=== PATIENT | female | born 1965 | race Caucasian/White ===

== ENCOUNTER 2020-05-14 12:19 | Outpatient (REF) | payer OTHER, SELFPAY ==
[2020-05-14 14:47] LABS: Calcium 10.4 mg/dL (8.4-10.2); Magnesium 2.4 mg/dL (1.6-2.6); Phosphorus 3.2 mg/dL (2.7-4.5)
[2020-05-14 14:52] LABS: Free T4 (Free Thyroxine) 1.15 ng/dL (0.71-1.85); Thyroid Stimulating Hormone 1.29 uIU/mL (0.32-4.0); Vitamin D 25-OH Total 22.6 ng/mL (>30)
[2020-05-15 10:43] LABS: Triiodothyronine T3 Free 3.1 pg/mL (2.3-4.2)
[2020-05-17 16:22] LABS: Calcium (PTHI) 10.7 mg/dL (8.6-10.4); PTHI 144 pg/mL (14-64)
== END 2020-05-14 12:20 | disposition home or self-care (01) ==
LOC: HO.HMGCLDS 12:19
PROVIDERS: PCP Internal Medicine; Visit Provider Internal Medicine
DX: E21.3 Hyperparathyroidism, unspecified (principal); E03.9 Hypothyroidism, unspecified; E55.9 Vitamin D deficiency, unspecified
CPT/HCPCS: 36415; 82306; 82310; 82330; 83735; 83970; 84100; 84439; 84443; 84481

== ENCOUNTER 2020-11-05 06:18 | Outpatient (REF) | payer OTHER, SELFPAY ==
[2020-11-05 11:29] LABS: MANUAL DIFF FLAG NO
[2020-11-05 11:36] LABS: Basophils Absolute Auto 0.1 X10*3/uL (0.0-0.2); Basophils Percent Auto 0.6 % (0-2); Eosinophils Absolute Auto 0.3 X10*3/uL (0.0-0.4); Eosinophils Percent Auto 3.3 % (0-4); Hematocrit 43.7 % (37-47); Imm Gran Abs Auto 0.02 X10*3/uL (0.00-0.03); Imm Gran Pct Auto 0.3 % (0.0-0.4); Lymphocytes Absolute Auto 2.5 X10*3/uL (1.2-4.9); Lymphocytes Percent Auto 31.3 % (20-40); Mean Corpuscular Hemoglobin 29.1 pg (27.0-33.0); Mean Corpuscular Volume 90.9 fL (80-98); Mean Platelet Volume 10.3 fL (9.4-12.3); Monocytes Absolute Auto 0.4 X10*3/uL (0.1-1.2); Monocytes Percent Auto 5.5 % (2-11); Neutrophils Absolute Auto 4.7 X10*3/uL (2.0-8.3); Platelet Count 293 X10*3/uL (160-400); Red Blood Count 4.81 X10*6/uL (4.20-5.50); Red Cell Distribution Width 12.5 % (11.0-16.0)
[2020-11-05 12:08] LABS: Alanine Aminotransferase 13 U/L (0-31); Albumin Level 4.1 g/dL (3.5-5.0); Alkaline Phosphatase 101 U/L (39-117); Anion Gap 12 (12-20); Aspartate Amino Transferase 12 U/L (5-31); Bilirubin Total 0.5 mg/dL (0.0-1.0); Blood Urea Nitrogen 11 mg/dL (9-16); Calcium 10.5 mg/dL (8.4-10.2); Carbon Dioxide 25 mmol/L (22-29); Chloride 108 mmol/L (96-108); Cholesterol 193 mg/dL; Estimated Glomerular Filt Rate > 60; Glucose Fasting 84 mg/dL (60-99); HDL Cholesterol 50 mg/dL; LDL Cholesterol Calculated 114 mg/dl; Potassium 4.3 mmol/L (3.3-5.1); Sodium 141 mmol/L (135-145); Total Protein 6.7 g/dL (6.5-8.0); Triglycerides 149 mg/dL
[2020-11-05 12:14] LABS: Vitamin D 25-OH Total 25.7 ng/mL (>30)
[2020-11-13 20:12] LABS: Parathyroid Hormone Related Pr 10 pg/mL (14-27)
== END 2020-11-05 06:19 | disposition home or self-care (01) ==
LOC: HO.HMGCLDS 06:18
PROVIDERS: PCP Internal Medicine; Visit Provider Internal Medicine
DX: E03.9 Hypothyroidism, unspecified (principal); E55.9 Vitamin D deficiency, unspecified; E21.3 Hyperparathyroidism, unspecified
CPT/HCPCS: 36415; 80053; 80061; 82306; 83519; 84443; 85025

== ENCOUNTER 2021-01-21 13:12 | Outpatient (REF) | payer OTHER, SELFPAY ==
--- NOTE | ~2021-01-21 | CT_ITS ---
EXAMINATION: CT CHEST SCREENING CLINICAL INFORMATION: Nicotine dependence, cigarettes. COMPARISON: Chest 07/05/2013 TECHNIQUE: Multidetector volumetric CT imaging of the chest is performed without contrast using low dose technique. Additional 2-D coronal and sagittal reformatted images and axial 3-D maximum intensity projection (MIP) images are generated on the CT workstation. This CT examination was performed using dose optimization techniques as appropriate, variously including the following: *Automated exposure control *Adjustment of mA and/or kV according to patient size (this includes techniques or standardized protocols for targeted exams where dose is matched to indication/reason for exam; i.e. extremities or head) *Use of iterative reconstruction technique DLP: 222 mGy-cm FINDINGS: LUNGS: The lungs are expanded and clear of acute process. There is a 2 mm nodule right upper lobe axial image 96/6, 3 mm nodule right upper lobe adjacent to the minor fissure on axial image 209/6, 4 mm nodule along the right minor fissure axial image 227/6, 4 mm nodule subpleural based in the lingula axial image 234/6, 1 mm subpleural based nodule right lower lobe axial image 317/6. No consolidation or ground-glass density seen. MEDIASTINUM: The central trachea and the bronchi are widely patent. Heart size and the great vessels are normal caliber. There are small shotty lymph nodes. No pericardial effusion seen. The left thyroid lobe is normal. The right thyroid lobe is not visualized well or atrophic. PLEURA: There is no pleural effusion. No pleural mass or thickening. AXILLA: There are small shotty bilateral axillary lymph nodes. The largest measuring 4 mm in the left axilla image 19/3. The chest wall appears unremarkable. UPPER ABDOMEN: Visualized liver, spleen, pancreas, and bilateral adrenal glands are unremarkable. OSSEOUS STRUCTURES: There is no lytic or sclerotic process. There is mild ventral spondylosis T4-T5 disc level. CT/CT lung screening IMPRESSION: Bilateral small right pulmonary nodules. 4 mm intrafissural nodule is likely lymph node. ASSESSMENT: Lung-RADS category 2: Benign. RECOMMENDATION: Low-dose annual CT chest.
== END 2021-01-21 13:13 | disposition home or self-care (01) ==
LOC: HO.CT 13:12
PROVIDERS: PCP Internal Medicine; Visit Provider Physician Assistant Medical
DX: Z12.2 Encounter for screening for malignant neoplasm of respiratory organs (principal); F17.210 Nicotine dependence, cigarettes, uncomplicated
CPT/HCPCS: 71271; G0296

== ENCOUNTER 2021-04-01 08:17 | Day surgery (SDC) | payer OTHER, SELFPAY ==
[2021-03-28 13:34] VITALS: BMI 26.3
--- NOTE | 2021-03-31 12:57 | HO.ANESPROP2 ---
Documented by User: Yulissa Henderson NP 03/31/21 12:57 HPI - Anesthesia Eval Consult details Narrative: 56yo F for Colonoscopy PMFSH Active Problems Active Problems: All Active Problems (Updated 01/21/21 @ 13:13 by Jania Lion PA-C) Personal history of nicotine dependence (Acute) Past Medical History Medical History (Updated 01/21/21 @ 13:13 by Jania Lion PA-C) Anxiety Hypercalcemia Hyperparathyroidism Hypothyroidism Personal history of nicotine dependence Tubular adenoma of colon (~2016) Vitamin D insufficiency Surgical History Surgical History (Updated 03/28/21 @ 13:28 by Soco Lawton RN) History of colonoscopy (~04/2016) History of laparoscopic cholecystectomy (~02/2016) History of laser assisted in situ keratomileusis (~2003) Hx of laparoscopy Social History Social History (Updated 01/21/21 @ 13:11 by Jania Lion PA-C) Alcohol intake: current Alcohol intake frequency: does not drink Patient Tobacco Use Status: Current everyday Tobacco user Tobacco use type: Cigarette Cigarette Packs Per Day: 0.5 Cigarettes Per Day: 10.0 Years Smoked: 37 (onset 19, 1/2-3/4ppd x 37yrs, 20PYH) Use of substances other than those prescribed or required for medical reasons: No Advance Directives Information Provided: Yes (informational brochure mailed) Advance Directives on File: No Meds Allergies Allergy/AdvReac Type Severity Reaction Status Date / Time Penicillins Allergy Intermediate Rash Verified 04/01/21 09:02 Home Medications Medication Instructions Recorded Confirmed Last Taken Type ergocalciferol (vitamin D2) 1,250 1 cap PO 2XW 03/28/21 03/28/21 Unknown History mcg (50,000 unit) capsule levothyroxine 112 mcg tablet 1 tab PO DAILY 03/28/21 03/28/21 Unknown History Exam Exam Date and Time: March 31, 2021 1257 Height,Weight and Vital Signs: Height 5 ft 6 in Weight 73.936 kg Assessment and Plan Assessment Anesthesia Assessment: Chart Reviewed Documented by User: Angeline Liang MD 04/01/21 09:32 [facility] Past Medical History Medical History (Updated 01/21/21 @ 13:13 by Jania Lion PA-C) Anxiety Hypercalcemia Hyperparathyroidism Hypothyroidism Personal history of nicotine dependence Tubular adenoma of colon (~2016) Vitamin D insufficiency Functional capacity: wheelchair bound Family History Family history of problems with anesthesia: No Surgical History Surgical History (Updated 03/28/21 @ 13:28 by Soco Lawton RN) History of colonoscopy (~04/2016) History of laparoscopic cholecystectomy (~02/2016) History of laser assisted in situ keratomileusis (~2003) Hx of laparoscopy History of Problems with Anesthesia: No Social History Social History (Updated 01/21/21 @ 13:11 by Jania Lion PA-C) Alcohol intake: current Alcohol intake frequency: does not drink Patient Tobacco Use Status: Current everyday Tobacco user Tobacco use type: Cigarette Cigarette Packs Per Day: 0.5 Cigarettes Per Day: 10.0 Years Smoked: 37 (onset 19, 1/2-3/4ppd x 37yrs, 20PYH) Use of substances other than those prescribed or required for medical reasons: No Advance Directives Information Provided: Yes (informational brochure mailed) Advance Directives on File: No Meds Allergies Allergy/AdvReac Type Severity Reaction Status Date / Time Penicillins Allergy Intermediate Rash Verified 04/01/21 09:02 Home Medications Medication Instructions Recorded Confirmed Last Taken Type ergocalciferol (vitamin D2) 1,250 1 cap PO 2XW 03/28/21 03/28/21 Unknown History mcg (50,000 unit) capsule levothyroxine 112 mcg tablet 1 tab PO DAILY 03/28/21 03/28/21 Unknown History Exam Airway Mallampati Class: II (Capupper left) TM Dist: >3cm Neck ROM: Full Heart: rrr Lungs: cta Assessment and Plan Assessment Anesthesia Assessment: Anesthesia Plan Discussed and Chart Reviewed Final Anesthetic Review Family History of Problems with Anesthesia: No History of Problems with Anesthesia: No NPO: Yes ASA Class: II Final Preanesthetic Review: No Changes in Pt Med Stat, Meds/Allgs Chart Reviewed and Consent Obtained/Reviewed Patient Risk: Intermediate Procedure Risk: Intermediate Anesthetic Plan Anesthetic Plan: MAC: Disposition: Standard PACU
[2021-04-01 09:06] VITALS: BP 123/85; PULSE 72; RESP 16; TEMP 36.9; O2SAT 97
[2021-04-01] MEDS: Lactated Ringers 1,000 ML 100 ML IVCONT (09:22)
[2021-04-01 10:40] VITALS: BP 108/51; PULSE 71; RESP 16; TEMP 36.8; O2SAT 98
--- NOTE | 2021-04-01 10:44 | PM.OP ---
Brief Operative Note Date of Service: 04/01/21 Pre-op diagnosis: Screening Post-op diagnosis: other (Colon polyps) Procedure: Colonoscopy to the cecum and TI with hot snare polypectomies, and bx/removal of polyps Surgeon: Holland Tiwari Anesthesia: MAC Was an Rheumatology Specialist used for this Procedure?: No Estimated blood loss (mL): 2.0 Pathology: other (A. Transverse colon polyps B. Cecal polyp C. Ascending colon polyps D. Distal rectal polyp) Condition: stable Disposition: PACU
[2021-04-01 10:55] VITALS: BP 130/90; PULSE 64; RESP 16; TEMP 36.8; O2SAT 100
--- NOTE | 2021-04-01 11:09 | OP_ITS ---
SURGEON: Holland Tiwari MD INDICATIONS: The patient presents for evaluation of personal history of tubular adenoma of the colon and colorectal cancer screening. Full consent has been obtained from her for this, including risks of bleeding and perforation. PREOPERATIVE DIAGNOSIS: POSTOPERATIVE DIAGNOSIS: PROCEDURE PERFORMED: Colonoscopy to the cecum and terminal ileum with hot snare polypectomies and biopsy and removal of polyps. ESTIMATED BLOOD LOSS: COMPLICATIONS: ANESTHESIA: Monitored anesthesia care. ASSISTANTS: SPECIMENS: PREOPERATIVE DIAGNOSES: Personal history of colon polyps and colorectal cancer screening. POSTOPERATIVE DIAGNOSES: Personal history of colon polyps and colorectal cancer screening, multiple colon polyps, diverticulosis, and internal hemorrhoids. DESCRIPTION OF PROCEDURE: The patient was placed in the left lateral decubitus position. The digital rectal exam revealed no abnormalities. The Olympus video pediatric colonoscope was entered into the rectum and advanced easily to the cecum. Once in the cecum, I did identify normal-appearing cecal pouch with appendiceal orifice and a normal-appearing ileocecal valve, other than a 3 or 4 mm polyp in the cecum, which was biopsied and completely removed with cold biopsy forceps. The terminal ileum was cannulated and appeared normal. The scope was withdrawn back in the colon. The remainder of the cecum appeared normal. The scope was slowly withdrawn assessing all mucosal surfaces carefully. Preparation was excellent. In the ascending colon, were 2 approximately 10 to 12 mm relatively flat polyps, which were each snared and removed with a hot snare and recovered by suction. The polypectomy sites appeared clean, without any sign of residual polyp nor bleeding. In the transverse colon, was an approximately 10 to 12 mm polyp, which was removed with a hot snare polypectomy and recovered by suction. The polypectomy site appeared clean, without any sign of residual polyp nor bleeding. In the same area, was an approximately 3 mm polyp, which was biopsied and completely removed with cold biopsy forceps. In the distal rectum, seen in the retroflexed position, was an approximately 12 mm polyp, which was snared and recovered by withdrawing it on the tip of the scope. The scope was advanced back into the rectum and the polypectomy site appeared clean, without any sign of residual polyp nor bleeding. I did not visualize any other polyps throughout the colon, colitis nor angiodysplasia. There was a mild amount of sigmoid diverticulosis. In the rectum, scope was retroflexed visualizing the distal rectum, which appeared normal other than the above-mentioned polyp. There were small internal hemorrhoids. The scope was withdrawn from the patient. She tolerated the procedure well and was returned to recovery area in stable condition. IMPRESSION: 1. Multiple colon polyps, status post snare polypectomy, and biopsy and removal. 2. Diverticulosis. 3. Internal hemorrhoids. PLAN: The results of the pathology will be checked. I would recommend a repeat colonoscopy in 3 years for further surveillance. She was advised not to use any aspirin and NSAIDs for 1 week. MD CECI Linares/LANCE / [id number]
== END 2021-04-01 11:20 | disposition home or self-care (01) ==
PROVIDERS: PCP Internal Medicine; Visit Provider Internal Medicine
PROC: 0DJD8ZZ Inspection of Lower Intestinal Tract, Via Natural or Artificial Opening Endoscopic (ICD-10-PCS; CPT 45378; principal; 2021-04-01 09:30)
DX: Z12.11 Encounter for screening for malignant neoplasm of colon (principal); Z86.010 Personal history of colon polyps; D12.0 Benign neoplasm of cecum; D12.2 Benign neoplasm of ascending colon; D12.3 Benign neoplasm of transverse colon; D12.8 Benign neoplasm of rectum; K57.30 Diverticulosis of large intestine without perforation or abscess without bleeding; K64.8 Other hemorrhoids; E03.9 Hypothyroidism, unspecified; E55.9 Vitamin D deficiency, unspecified; Z79.899 Other long term (current) drug therapy; Z90.49 Acquired absence of other specified parts of digestive tract; F17.210 Nicotine dependence, cigarettes, uncomplicated
CPT/HCPCS: 45385; 45380; 88305

== ENCOUNTER 2021-11-09 06:19 | Outpatient (REF) | payer OTHER, SELFPAY ==
[2021-11-09 11:23] LABS: Appearance Urine CLEAR; Color Urine YELLOW; Glucose Urine UA NEG (NEG); Leukocyte Esterase Urine NEG (NEG); Nitrite Urine NEG (NEG); Specific Gravity - Urine 1.025 (1.005-1.025); Urine Blood TRACE (NEG); Urine Ketones NEG (NEG); Urine Protein NEG (NEG-TRACE)
[2021-11-09 11:28] LABS: MANUAL DIFF FLAG NO
[2021-11-09 11:35] LABS: Basophils Absolute Auto 0.1 X10*3/uL (0.0-0.2); Basophils Percent Auto 0.9 % (0-2); Eosinophils Absolute Auto 0.2 X10*3/uL (0.0-0.4); Eosinophils Percent Auto 2.7 % (0-4); Hematocrit 43.9 % (37.0-47.0); Hemoglobin 14.6 g/dl (12.0-16.0); Imm Gran Abs Auto 0.04 X10*3/uL (0.00-0.03); Imm Gran Pct Auto 0.5 % (0.0-0.4); Lymphocytes Absolute Auto 2.1 X10*3/uL (1.2-4.9); Lymphocytes Percent Auto 26.8 % (20-40); Mean Corpuscular HGB Conc 33.3 g/dl (31.0-35.0); Mean Corpuscular Hemoglobin 29.7 pg (27.0-33.0); Mean Corpuscular Volume 89.4 fL (80.0-98.0); Mean Platelet Volume 10.3 fL (9.4-12.3); Monocytes Absolute Auto 0.5 X10*3/uL (0.1-1.2); Monocytes Percent Auto 6.7 % (2-11); Neutrophils Absolute Auto 4.9 x10*3/uL (2.0-8.3); Neutrophils Percent Auto 62.4 % (45-73); Platelet Count 288 X10*3/uL (160-400); Red Blood Count 4.91 X10*6/uL (4.20-5.50); Red Cell Distribution Width 12.6 % (11.0-16.0); White Blood Count 7.8 X10*3/uL (4.8-10.8)
[2021-11-09 11:56] LABS: Alanine Aminotransferase 18 U/L (0-31); Albumin Level 4.3 g/dL (3.5-5.0); Alkaline Phosphatase 102 U/L (39-117); Anion Gap 7 (12-20); Aspartate Amino Transferase 13 U/L (5-31); Bilirubin Total 0.5 mg/dL (0.0-1.0); Blood Urea Nitrogen 8 mg/dL (9-16); Calcium 10.4 mg/dL (8.4-10.2); Carbon Dioxide 27 mmol/L (22-29); Chloride 108 mmol/L (96-108); Cholesterol 195 mg/dL; Estimated Glomerular Filt Rate > 60; Glucose Fasting 97 mg/dL (60-99); HDL Cholesterol 49 mg/dL; LDL Cholesterol Calculated 116 mg/dl; Sodium 138 mmol/L (135-145); Triglycerides 152 mg/dL
[2021-11-09 12:18] LABS: Thyroid Stimulating Hormone 5.49 uIU/mL (0.32-4.0); Vitamin D 25-OH Total 38.2 ng/mL (>30)
[2021-11-09 12:28] LABS: Calcium Oxalate Crystals Urine 2+ /LPF
[2021-11-09 12:29] LABS: Bacteria Urine TRACE /LPF; Squamous Epithelial Cell Urine 2+ /LPF
[2021-11-09 12:30] LABS: RBC Urine 0-2 /HPF (0); WBC Urine 0-2 /HPF (0-4)
[2021-11-11 11:17] LABS: Calcium (PTHI) 10.7 mg/dL (8.6-10.4); PTHI 117 pg/mL (16-77)
== END 2021-11-09 06:20 | disposition home or self-care (01) ==
LOC: HO.HMGCLDS 06:19
PROVIDERS: Visit Provider Internal Medicine
DX: Z00.00 Encounter for general adult medical examination without abnormal findings (principal); E03.9 Hypothyroidism, unspecified; E55.9 Vitamin D deficiency, unspecified; F17.200 Nicotine dependence, unspecified, uncomplicated
CPT/HCPCS: 36415; 80053; 80061; 81001; 82306; 83970; 84443; 85025

== ENCOUNTER 2022-06-02 06:25 | Outpatient (REF) | payer OTHER, SELFPAY ==
[2022-06-02 12:26] LABS: Alanine Aminotransferase 22 U/L (0-31); Albumin Level 4.1 g/dL (3.5-5.0); Alkaline Phosphatase 123 U/L (39-117); Anion Gap 11 (12-20); Aspartate Amino Transferase 16 U/L (5-31); Bilirubin Total 0.5 mg/dL (0.0-1.0); Blood Urea Nitrogen 9 mg/dL (9-16); Calcium 10.6 mg/dL (8.4-10.2); Carbon Dioxide 27 mmol/L (22-29); Chloride 109 mmol/L (96-108); Estimated Glomerular Filt Rate > 60; Glucose Fasting 99 mg/dL (60-99); Potassium 4.2 mmol/L (3.3-5.1); Sodium 143 mmol/L (135-145); Total Protein 6.5 g/dL (6.5-8.0)
[2022-06-05 13:15] LABS: Calcium (PTHI) 10.8 mg/dL (8.6-10.4); PTHI 97 pg/mL (16-77)
== END 2022-06-02 06:26 | disposition home or self-care (01) ==
LOC: HO.HMGCLDS 06:25
PROVIDERS: PCP Internal Medicine; Visit Provider Internal Medicine
DX: E03.9 Hypothyroidism, unspecified (principal); D55.9 Anemia due to enzyme disorder, unspecified; E21.3 Hyperparathyroidism, unspecified
CPT/HCPCS: 36415; 80053; 83970; 84443

== ENCOUNTER 2023-02-01 06:01 | Outpatient (REF) | payer OTHER, SELFPAY ==
[2023-02-01 11:36] LABS: MANUAL DIFF FLAG NO
[2023-02-01 11:49] LABS: Basophils Absolute Auto 0.1 X10*3/uL (0.0-0.2); Basophils Percent Auto 0.8 % (0-2); Eosinophils Absolute Auto 0.3 X10*3/uL (0.0-0.4); Eosinophils Percent Auto 4.1 % (0-4); Hematocrit 43.1 % (37.0-47.0); Hemoglobin 13.9 g/dl (12.0-16.0); Imm Gran Abs Auto 0.02 X10*3/uL (0.00-0.03); Imm Gran Pct Auto 0.3 % (0.0-0.4); Lymphocytes Absolute Auto 2.2 X10*3/uL (1.2-4.9); Lymphocytes Percent Auto 29.8 % (20-40); Mean Corpuscular HGB Conc 32.3 g/dl (31.0-35.0); Mean Corpuscular Hemoglobin 28.7 pg (27.0-33.0); Mean Platelet Volume 10.6 fL (9.4-12.3); Monocytes Absolute Auto 0.5 X10*3/uL (0.1-1.2); Monocytes Percent Auto 6.4 % (2-11); Neutrophils Absolute Auto 4.2 x10*3/uL (2.0-8.3); Neutrophils Percent Auto 58.6 % (45-73); Platelet Count 289 X10*3/uL (160-400); Red Blood Count 4.84 X10*6/uL (4.20-5.50); Red Cell Distribution Width 12.6 % (11.0-16.0); White Blood Count 7.2 X10*3/uL (4.8-10.8)
[2023-02-01 12:22] LABS: Alanine Aminotransferase 17 U/L (0-31); Alkaline Phosphatase 112 U/L (39-117); Anion Gap 12 (12-20); Aspartate Amino Transferase 16 U/L (5-31); Bilirubin Total 0.5 mg/dL (0.0-1.0); Blood Urea Nitrogen 7 mg/dL (9-16); Calcium 10.8 mg/dL (8.4-10.2); Carbon Dioxide 24 mmol/L (22-29); Chloride 108 mmol/L (96-108); Cholesterol 180 mg/dL (<200); Estimated Glomerular Filt Rate > 60; Glucose Fasting 88 mg/dL (60-99); HDL Cholesterol 47 mg/dL (>40); LDL Cholesterol Calculated 99 mg/dL (<100); Potassium 3.8 mmol/L (3.3-5.1); Sodium 140 mmol/L (135-145); Total Protein 6.7 g/dL (6.5-8.0); Triglycerides 173 mg/dL (<150)
[2023-02-01 12:27] LABS: Vitamin D 25-OH Total 56.5 ng/mL (>30)
[2023-02-09 17:53] LABS: Parathyroid Hormone Related Pr 12 pg/mL (11-20)
== END 2023-02-01 06:02 | disposition home or self-care (01) ==
LOC: HO.HMGCLDS 06:01
PROVIDERS: PCP Internal Medicine; Visit Provider Internal Medicine
DX: Z00.00 Encounter for general adult medical examination without abnormal findings (principal); E03.9 Hypothyroidism, unspecified; E55.9 Vitamin D deficiency, unspecified; E21.3 Hyperparathyroidism, unspecified; F17.200 Nicotine dependence, unspecified, uncomplicated
CPT/HCPCS: 36415; 80053; 80061; 82306; 83519; 84443; 85025

== ENCOUNTER 2023-03-01 10:37 | Outpatient (AMB) | payer OTHER, SELFPAY ==
--- NOTE | 2023-03-01 10:42 | A.OFFVIS_ITS ---
Intake Vital Signs 3 03/01/23 10:58 Height 5 ft 6 in Weight 165 lb BMI 26.6 BP 122/82 Blood Pressure Location Lt brachial Position Sitting Intake Visit Reasons: mass left upper leg Intake Note: Patient is seen in office for evaluation and treatment of leg upper leg mass. Patient c/o: onset 3 months, has increase in size, painful to the touch, denies discharge, redness or other concerns Manager Clinical Pharmacy Required: No Accompanied by: Self / Same As Patient Allergies Penicillins Allergy (Intermediate, Verified 03/01/23 10:52) Rash Medication List - Last Reconciled 03/01/23 by Senthil Underwood MD ergocalciferol (vitamin D2) 1 cap PO 2XW levothyroxine 1 tab PO DAILY HPI HPI Comments 2 History of Present Illness0 Details 58-year-old female patient presenting fo r evaluation of a mass in the left upper leg. The lesion was initially noted approximately 3 months ago and thought to be an ingrown hair. She reports squeezing the lesion but was unable to drain any fluid. Since this time the lesion has become hard and more elevated. She notes some crusty surface on the outside but denies any bleeding or discharge. She denies a previous history of similar lesions in other parts of her body. She does report pain associated with the lesion. She is requesting excision. [facility] Medical History Hypercalcemia Anxiety Vitamin D insufficiency Hypothyroidism Hyperparathyroidism Tubular adenoma of colon (~2016) Personal history of nicotine dependence Surgical History History of wisdom tooth extraction Hx of laparoscopy History of laser assisted in situ keratomileusis (~2003) History of laparoscopic cholecystectomy (~02/2016) History of colonoscopy (~04/2016) Family History Paternal Grandmother Colon cancer Maternal Grandmother Uterine cancer Social History Alcohol intake: current Alcohol intake frequency: does not drink Patient Tobacco Use Status: Current everyday Tobacco user Tobacco use type: Cigarette Cigarette Packs Per Day: 0.5 Cigarettes Per Day: 10.0 Years Smoked: 37 (onset 19, 1/2-3/4ppd x 37yrs, 20PYH) Review of Systems Const All systems reviewed & are unremarkable except as noted in HPI and below Denies chills, Denies fever(s), Denies headache(s), Denies poor appetite and Denies weakness ENT Denies headache(s) Card Denies chest pain, Denies irregular heart rhythm, Denies palpitations and Denies dyspnea Resp Denies cough, Denies excessive phlegm production and Denies dyspnea GI Denies abdominal pain, Denies bloating, Denies change in bowel habits, Denies constipation, Denies heartburn, Denies diarrhea, Denies nausea and Denies vomiting Denies urinary frequency Musc Denies back pain, Denies muscle weakness and Denies numbness Skin/Breast Denies changing lesions and Denies unusual bruising Neuro Denies headache(s), Denies numbness, Denies paresthesias and Denies weakness Psych Denies anxiety and Denies depression Endo Denies palpitations Franki/Lymph Denies lymphadenopathy Physical Exam Const General: cooperative and no acute distress Nutritional Appearance: well nourished Orientation/consciousness: patient oriented x3 Limitations: no limitations HEENT Head: Yes normocephalic and Yes atraumatic Ears: hearing grossly normal bilaterally Resp Effort & Inspection: normal respiratory effort, no audible wheezes, no cough and no respiratory distress Cardio Jugular venous distension: no JVD GI Inspection: Yes normal to inspection Skin Other: Warm, dry, no rash Neuro General: patient oriented x3 Extrem General: Yes no clubbing, cyanosis or edema Knee images: 2 1. 1.2 cm hard, pearly lesion with a crusted apex, no pigmentation appreciated. No bleeding or ulceration noted. Lesion appears suggestive of a squamous cell carcinoma. Assessment & Plan Assessment & Plan (1) Skin lesion of left leg: Code(s): L98.9 - Disorder of the skin and subcutaneous tissue, unspecified Plan 58-year-old female patient presenting with a 3 month history of a skin lesion of the left leg which on examination measures approximately 1.2 cm in diameter. It has a firm pearly appearance with a crusted apex. Findings are suggestive of a squamous cell carcinoma. I recommended an excision of the entire lesion to achieve negative margins as a minor surgery under local anesthesia. After discussion of the procedure, risks, and alternatives, she consents to excision of the left leg skin lesion. Coding Level of Care Code New Pt Level 4 (59200) Diagnoses Skin lesion of left leg L98.9
[2023-03-01 10:58] VITALS: BP 122/82; BMI 26.6
== END 2023-03-01 11:03 | disposition home or self-care (01) ==
PROVIDERS: PCP Internal Medicine; Visit Provider Surgery
DX: L98.9 Disorder of the skin and subcutaneous tissue, unspecified (principal)
CPT/HCPCS: 99204

== ENCOUNTER → 2023-03-01 10:37 | Outpatient (BNVA) | payer OTHER, SELFPAY | PROVIDERS: PCP Internal Medicine; Visit Provider Surgery ==

== ENCOUNTER 2023-03-13 10:52 | Outpatient (REF) | payer OTHER, SELFPAY ==
[2023-03-13 11:06] VITALS: BP 157/84; PULSE 70; RESP 16; TEMP 36.6; O2SAT 157
[2023-03-13 11:08] VITALS: BMI 26.6
[2023-03-13 11:48] VITALS: BP 137/82; PULSE 72; RESP 16; O2SAT 97
--- NOTE | 2023-03-13 12:02 | P.OP_ITS ---
Operative Note Operative Note Date of Service: 03/13/23 Narrative: Preoperative diagnosis: Dermal lesion left thigh of unknown malignant potential Postoperative diagnosis: Same Procedure: Excision of dermal lesion left thigh of unknown malignant potential Surgeon: Senthil Underwood MD Soil Conservation Aide: None Anesthesia: Local lidocaine 1% with epinephrine Indications for procedure: 58-year-old female patient presenting with a pearly lesion of the left lateral thigh measuring approximately 1 cm in diameter. Operative findings: Lesion was excised with 2 mm margins be on the palpable lesion Specimen: Dermal lesion left lateral thigh Estimated blood loss: Less than 2 mL Complications: None Procedure details: Patient was brought to the minor surgery suite placed in a supine position. The site of surgery was confirmed by the patient in the left lateral thigh. After assuring informed consent the skin was prepped with Betadine and draped in a sterile fashion. Local anesthesia was then infiltrated around the skin lesion. Elliptical incision oriented longitudinally was then created with a 15 blade. Care was taken to assure at least 2 mm margins around the lesion. The incision was carried out through subcutaneous tissue and then completely excised. This was passed off the table and sent to pathology for further examination. Light pressure was held to maintain hemostasis. Dermis was then reapproximated using interrupted 4-0 Polysorb sutures. Skin was closed using interrupted 4-0 nylon sutures. Sterile dressings consisting of 2 x 2 gauze and Tegaderm were then applied. The patient tolerated the procedure well. She was discharged to home in stable condition.
== END 2023-03-13 10:53 | disposition home or self-care (01) ==
LOC: HO.MS 10:52
PROVIDERS: PCP Internal Medicine; Visit Provider Surgery
PROC: (CPT 11602; principal; 2023-03-13 11:20)
DX: C44.729 Squamous cell carcinoma of skin of left lower limb, including hip (principal)
CPT/HCPCS: 11602; 88305

== ENCOUNTER → 2023-03-13 10:52 | Outpatient (BNV) | payer OTHER, SELFPAY | PROVIDERS: PCP Internal Medicine; Visit Provider Surgery | DX: C44.729 Squamous cell carcinoma of skin of left lower limb, including hip (principal) | CPT/HCPCS: 11603 ==

== ENCOUNTER 2023-03-20 09:43 | Outpatient (AMB) | payer OTHER, SELFPAY ==
--- NOTE | 2023-03-20 10:03 | A.OFFVIS_ITS ---
Intake Vital Signs 03/20/23 10:10 Height 5 ft 6 in Weight 165 lb 0.009 oz BMI 26.6 BP 138/83 Blood Pressure Location Rt brachial Position Sitting Pulse 75 Intake Visit Reasons: S/P excision Left thigh lesion Intake Note: Patient is seen in office for post op assessment post excision left thigh lesion. Patient c/o: reports no changes or complaints at this time. Highway Worker Required: No Accompanied by: Self / Same As Patient Allergies Penicillins Allergy (Intermediate, Verified 03/20/23 10:11) Rash Medication List - Last Reconciled 03/20/23 by Senthil Underwood MD ergocalciferol (vitamin D2) 1 cap PO 2XW levothyroxine 1 tab PO DAILY HPI HPI Comments History of Present Illness Details 58-year-old female patient status post e xcision of lesion of the left lateral thigh 1 week ago. Pathology revealed invasive squamous cell carcinoma, well differentiated, completely excised with negative margins. She tolerated the procedure well and reports no pain following the procedure. She returns today for suture removal and wound check. [facility] Medical History Hypercalcemia Anxiety Vitamin D insufficiency Hypothyroidism Hyperparathyroidism Tubular adenoma of colon (~2016) Personal history of nicotine dependence Surgical History History of local excision of skin lesion (03/13/23) History of wisdom tooth extraction Hx of laparoscopy History of laser assisted in situ keratomileusis (~2003) History of laparoscopic cholecystectomy (~02/2016) History of colonoscopy (~04/2016) Family History Paternal Grandmother Colon cancer Maternal Grandmother Uterine cancer Alcohol intake: current Alcohol intake frequency: does not drink Patient Tobacco Use Status: Current everyday Tobacco user Tobacco use type: Cigarette Cigarette Packs Per Day: 0.5 Cigarettes Per Day: 10.0 Years Smoked: 37 (onset 19, 1/2-3/4ppd x 37yrs, 20PYH) Physical Exam Vital Signs: Last Vital Signs Pulse 75 03/20/23 10:10 BP 138/83 03/20/23 10:10 BMI result Body Mass Index 26.6 Const General: comfortable and no acute distress Nutritional Appearance: well nourished Orientation/consciousness: patient oriented x3 Limitations: no limitations Resp Effort & Inspection: normal respiratory effort Neuro General: patient oriented x3 Extrem Other: Incision in the left lateral thigh is clean, dry, and intact. Sutures removed and Steri-Strips applied. Wounds were found to be well healed. Assessment & Plan Assessment & Plan (1) Cancer of skin of left leg: Comment: Invasive squamous cell carcinoma, excised 03/13/2023 Code(s): C44.709 - Unspecified malignant neoplasm of skin of left lower limb, including hip Plan 58-year-old female patient status post excision of a squamous cell carcinoma of the left lateral thigh. She tolerated the procedure well the wounds are well healed. No further surgical intervention is required at this time. She should continue with routine skin checks follow-up as needed. Coding Level of Care Code Global (27632) Diagnoses Cancer of skin of left leg C44.709
[2023-03-20 10:10] VITALS: BP 138/83; PULSE 75; BMI 26.6
== END 2023-03-20 10:17 | disposition home or self-care (01) ==
PROVIDERS: PCP Internal Medicine; Visit Provider Surgery
DX: C44.709 Unspecified malignant neoplasm of skin of left lower limb, including hip (principal)
CPT/HCPCS: 99024

== ENCOUNTER → 2023-03-20 09:43 | Outpatient (BNVA) | payer OTHER, SELFPAY | PROVIDERS: PCP Internal Medicine; Visit Provider Surgery ==

== ENCOUNTER 2023-04-10 10:12 | Outpatient (REF) | payer OTHER, SELFPAY | END 2023-04-10 10:13 | disposition home or self-care (01) | LOC: HO.CT 10:12 | PROVIDERS: Visit Provider Physician Assistant Medical | DX: Z12.2 Encounter for screening for malignant neoplasm of respiratory organs (principal); F17.210 Nicotine dependence, cigarettes, uncomplicated | CPT/HCPCS: 71271 ==

== ENCOUNTER 2024-02-12 06:34 | Outpatient (REF) | payer OTHER, SELFPAY ==
[2024-02-12 10:11] LABS: MANUAL DIFF FLAG NO
[2024-02-12 10:17] LABS: Basophils Absolute Auto 0.1 X10*3/uL (0.0-0.2); Basophils Percent Auto 0.7 % (0-2); Eosinophils Absolute Auto 0.3 X10*3/uL (0.0-0.4); Eosinophils Percent Auto 3.1 % (0-4); Hematocrit 42.7 % (37.0-47.0); Hemoglobin 14.2 g/dl (12.0-16.0); Imm Gran Abs Auto 0.03 X10*3/uL (0.00-0.03); Imm Gran Pct Auto 0.4 % (0.0-0.4); Lymphocytes Absolute Auto 2.1 X10*3/uL (1.2-4.9); Mean Corpuscular HGB Conc 33.3 g/dl (31.0-35.0); Mean Corpuscular Hemoglobin 29.7 pg (27.0-33.0); Mean Corpuscular Volume 89.3 fL (80.0-98.0); Mean Platelet Volume 10.2 fL (9.4-12.3); Monocytes Absolute Auto 0.5 X10*3/uL (0.1-1.2); Neutrophils Absolute Auto 5.5 x10*3/uL (2.0-8.3); Neutrophils Percent Auto 64.8 % (45-73); Platelet Count 284 X10*3/uL (160-400); Red Blood Count 4.78 X10*6/uL (4.20-5.50); Red Cell Distribution Width 12.6 % (11.0-16.0); White Blood Count 8.4 X10*3/uL (4.8-10.8)
[2024-02-12 10:53] LABS: Alanine Aminotransferase 17 U/L (0-31); Alkaline Phosphatase 93 U/L (39-117); Anion Gap 9 (12-20); Aspartate Amino Transferase 18 U/L (5-31); Bilirubin Total 0.4 mg/dL (0.0-1.0); Blood Urea Nitrogen 9 mg/dL (9-16); Calcium 10.8 mg/dL (8.4-10.2); Carbon Dioxide 27 mmol/L (22-29); Chloride 110 mmol/L (96-108); Cholesterol 206 mg/dL (<200); Estimated Glomerular Filt Rate > 60; Glucose Fasting 95 mg/dL (60-99); HDL Cholesterol 49 mg/dL (>40); LDL Cholesterol Calculated 138 mg/dL (<100); Potassium 3.7 mmol/L (3.3-5.1); Sodium 142 mmol/L (135-145); Total Protein 6.5 g/dL (6.5-8.0); Triglycerides 99 mg/dL (<150)
[2024-02-12 11:11] LABS: Thyroid Stimulating Hormone 6.88 uIU/mL (0.32-4.0); Vitamin D 25-OH Total 62.5 ng/mL (>30)
[2024-02-12 11:20] LABS: Parathyroid Hormone Intact 174.9 pg/mL (8.7-77.1)
== END 2024-02-12 06:35 | disposition home or self-care (01) ==
LOC: HO.HMGCLDS 06:34
PROVIDERS: PCP Internal Medicine; Visit Provider Internal Medicine
DX: Z00.00 Encounter for general adult medical examination without abnormal findings (principal); E03.9 Hypothyroidism, unspecified; E55.9 Vitamin D deficiency, unspecified; E21.3 Hyperparathyroidism, unspecified
CPT/HCPCS: 36415; 80053; 80061; 82306; 83970; 84443; 85025

== ENCOUNTER 2024-04-28 09:32 | Outpatient (REF) | payer OTHER, SELFPAY ==
--- NOTE | ~2024-04-28 | CT_ITS ---
CLINICAL HISTORY: F17.210 - Nicotine dependence, cigarettes, uncomplicated CT lung cancer screening (LDCT) Comparison: CT/FL - CT LUNG SCREENING - 01/21/21 13:36 EDT Technique: Axial CT images of the chest using low-dose technique. Referring provider counseled the patient on shared decision-making for LDCT screening. Additional counseling was provided on smoking cessation. Effective radiation dose total: DLP 37 mGycm, CTDIvol 1.2 mGy. Findings: Lung: Few scattered punctate pulmonary micro nodules bilaterally, measuring less than 6 mm and considered benign. For instance, the largest in the posterior aspect of the left upper lobe measuring 5 mm (series 6, image 223). No infectious consolidation. No pleural effusion or pneumothorax. Coronary artery calcifications: None Limited upper abdomen: Unremarkable Other: Mild atherosclerotic calcifications of the aorta. Impression: LungRADS Category 2: Benign appearance or behavior, continue annual screening. Category 1: Normal; continue annual screening Category 2: Benign appearance or behavior, continue annual screening Category 3: Probably benign, [address] recommended Category 4A: Suspicious, [address] recommended; may consider PET/CT Category 4B: Suspicious, Additional diagnostics and/or tissue sampling recommended Category 4X: Suspicious, Additional diagnostics and/or tissue sampling recommended Category 0: Recalls (incomplete screen due to Incomplete coverage, Noise, Respiratory motion, Expiration, Obscured by acute abnormality) This document has been electronically signed by: Cynthia Boykin MD on 04/28/2024 11:53:26
--- OUTSIDE RECORDS SUMMARY | 2024-04-28 10:00 | XMS_ITS | Continuity of Care Document ---
Author Organization [facility] [address] [facility] [address] [place] [address] Phone [phone] Care Team Providers Care Deaf And Hard Of Hearing Teacher Name Role Phone Holland Raymond M.D. Care Team Information Recei sandy [phone] Social History Type Date Description Comments Sex Unknown Medical Devices Description No Information Available Encounters Description No Information Available Assessments Description No Information Available Plan of Treatment Future Appointment(s):* 06/12/2024 9:30 am - Reyes Guerrier M.D. at Main Office Functional Status Description No Information Available Mental Status Description No Information Available Referrals Description No Information Available
== END 2024-04-28 09:33 | disposition home or self-care (01) ==
LOC: HO.CT 09:32
PROVIDERS: PCP Internal Medicine; Visit Provider Physician Assistant Medical
DX: Z12.2 Encounter for screening for malignant neoplasm of respiratory organs (principal); F17.210 Nicotine dependence, cigarettes, uncomplicated
CPT/HCPCS: 71271

== ENCOUNTER → 2024-04-28 09:34 | Outpatient (BNV) | payer OTHER, SELFPAY | PROVIDERS: PCP Internal Medicine; Visit Provider Radiology Diagnostic Radiology | DX: F17.210 Nicotine dependence, cigarettes, uncomplicated (principal) | CPT/HCPCS: 71271 ==

== ENCOUNTER 2024-06-23 08:53 | Outpatient (AMB) | payer OTHER, SELFPAY ==
--- NOTE | 2024-06-23 08:56 | MHC.PC.OV ---
Vital Signs 06/23/24 09:01 Height 5 ft 5 in Weight 167 lb BMI 27.8 BP 126/80 Blood Pressure Location Rt brachial Pulse 69 Pulse Source Pulse Oximeter Temp 97.9 F Pulse Oximetry (%) 100 Intake Visit Reasons: follow up Intake Note: no other issues Allergies Penicillins Allergy (Intermediate, Verified 06/23/24 09:13) Rash Medication List - Last Reconciled 06/23/24 by Genaro Castro MD levothyroxine 112 mcg PO DAILY lorazepam 1 mg PO BID PRN PFSH Medical History Cancer of skin of left leg Nicotine dependence, cigarettes, uncomplicated Hypercalcemia Anxiety Vitamin D insufficiency Hypothyroidism Hyperparathyroidism Tubular adenoma of colon (~2016) Surgical History History of squamous cell carcinoma excision History of wisdom tooth extraction Hx of laparoscopy History of laser assisted in situ keratomileusis (~2003) History of laparoscopic cholecystectomy (~02/2016) History of colonoscopy (~04/2016) Family History Paternal Grandmother Colon cancer Maternal Grandmother Uterine cancer Social History Alcohol intake: current Alcohol intake frequency: does not drink Patient Tobacco Use Status: Current everyday Tobacco user Tobacco use type: Cigarette Cigarette Packs Per Day: 0.5 Cigarettes Per Day: 10.0 Years Smoked: 37 (onset 19, 1/2-3/4ppd x 38yrs, 20PYH) Packs Per Year: 0 Packs per year/per ci.00 Physical exam (Primary Care) Vital Signs: Last Vital Signs Temp 97.9 F 06/23/24 09:01 Pulse 69 06/23/24 09:01 BP 126/80 06/23/24 09:01 Pulse Ox 100 06/23/24 09:01 BMI result Body Mass Index 27.8 Tobacco/Smoking Status: Tobacco use Status Patient Tobacco Use Status Current everyday Tobacco 06/23/24 08:59 Tobacco use type Cigarette 06/23/24 08:59 Coding Level of Care Code New Pt Level 4 (68473) Complex EM visit Add On G2211 Diagnoses Anxiety F41.9 Hyperparathyroidism E21.3 Hypothyroidism E03.9 Assessment & Plan Assessment & Plan (1) Anxiety: Code(s): F41.9 - Anxiety disorder, unspecified Category: Medical Plan: Intermittent use of Lorazepam. Currently not using it at all. (2) Hyperparathyroidism: Code(s): E21.3 - Hyperparathyroidism, unspecified Category: Medical Plan: Active work up continuing at [facility]. (3) Hypothyroidism: Code(s): E03.9 - Hypothyroidism, unspecified Category: Medical Plan: TSH in range. Continue synthroid at same dosage. Plan History of Present Illness The patient is a 59-year-old female presenting for a routine wellness visit alongside follow-up care for hypercalcemia and hypothyroidism. Hypercalcemia was initially identified by Dr. Raymond, necessitating a referral to an warble saw operator. Appropriate steps have been taken to investigate the underlying cause, including planned blood tests and a recommended bone density assessment, although recent records were not readily available for comparison. The patient?s vitamin D supplementation has been temporarily ceased to aid in managing hypercalcemia. Concurrent with this, her hypothyroidism remains under control with her ongoing levothyroxine therapy. 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 - Housing: Resides with her ; no children. - Travel: Enjoys travel; - Functional status: Active lifestyle, maintains regular health screenings. - Family Status: , no children. Review of Systems - Eye: Reports good vision with use of reading glasses; no night driving issues like halos. - Sleep: Occasionally experiences difficulties sleeping through the night. - Genitourinary: Denies urinary leakage or related issues. - Gastrointestinal: Bowel habits reported as regular. Physical Exam General: Cooperative and healthy appearing Nutritional Appearance: Well nourished Orientation/consciousness: Patient oriented x3 Limitations: No limitations Head: Normal to inspection General: Appearance normal, both eyes and all related structures Neck: Normal visual inspection Chest: Normal palpation of entire chest wall Respiratory: Normal respiratory effort Neurology: Patient oriented x3 Results - Labs: Pending lab work to assess hypercalcemia. - Tests and Diagnostics: Recommendation for bone density test noted. Plan The patient's ongoing management for hypercalcemia involves further diagnostic evaluation as recommended by the warble saw operator, with a focus on blood work scheduled to follow today?s visit. Her hypothyroidism is well-managed with levothyroxine, and her treatment plan will continue as it does not require modification at this time. We are temporarily withholding vitamin D pending further assessment results. Future evaluations of bone health are indicated with a bone density test. A six-month follow-up appointment is planned to reassess and update management strategies as necessary. Patient was informed and verbally consented to the use of an ambient scribe for clinic note documentation during this visit. Discussion Notes The patient and I discussed the current status and future plans for managing her hypercalcemia and hypothyroidism. I emphasized the importance of completing the pending lab work and the rationale for pausing vitamin D. The recommendation for a bone density test aligns with her current diagnostic work-up. We reviewed her medication regimen, and she acknowledged understanding of the plan to continue levothyroxine. We agreed on a six-month follow-up with the intention of adjusting treatment strategies based on findings and remained proactive for any emergent matters. Patient Instructions - Complete scheduled blood work at the [facility] as soon as possible. - Coordinate with diagnostic centers to verify and complete a bone density scan. - Continue taking levothyroxine as directed. - Suspend vitamin D supplementation until advised otherwise. - Follow up in six months or earlier if any issues arise. - Report any significant changes in symptoms promptly. Orders: Orders Lipid Panel Today E03.9 - Hypothyroidism, unspecified, E21.3 - Hyperparathyroidism, unspecified, F41.9 - Anxiety disorder, unspecified Liver Panel Today E03.9 - Hypothyroidism, unspecified, E21.3 - Hyperparathyroidism, unspecified, F41.9 - Anxiety disorder, unspecified Thyroid Stimulating Hormone Today E03.9 - Hypothyroidism, unspecified, E21.3 - Hyperparathyroidism, unspecified, F41.9 - Anxiety disorder, unspecified UA and rflx microscopic Today E03.9 - Hypothyroidism, unspecified, E21.3 - Hyperparathyroidism, unspecified, F41.9 - Anxiety disorder, unspecified Basic Metabolic Panel Today E03.9 - Hypothyroidism, unspecified, E21.3 - Hyperparathyroidism, unspecified, F41.9 - Anxiety disorder, unspecified Complete Blood Count no Diff Today E03.9 - Hypothyroidism, unspecified, E21.3 - Hyperparathyroidism, unspecified, F41.9 - Anxiety disorder, unspecified
[2024-06-23 09:01] VITALS: BP 126/80; PULSE 69; TEMP 36.6; O2SAT 100; BMI 27.8
--- OUTSIDE RECORDS SUMMARY | 2024-06-23 09:27 | XMS_ITS | Continuity of Care Document ---
Author Organization [facility] [address] [place] [address] Phone [phone] Care Team Providers Care District Director Name Role Phone Holland Raymond M.D. Care Team Information Recei sandy [phone] Social History Type Date Description Comments Sex Unknown Lives With Spouse ETOH Use Denies alcohol use Tobacco Use Start: Unknown Patient is a current smoke r, smokes every day 1/2 pack qd Allergies and adverse reactions Active Allergies Criticality Reaction Severity Comments Date Penicillin Unable to assess criticality Hives 06/12/2024 Medications Active Medications SIG Qnty Indications Ordering Provider Date Levothyroxine [id number] Tablets 1 tab by mouth every morning 90tabs Genaro Castro MD Vitamin D (Ergocalciferol)1.25mg (96456 Ut) Capsules Sea Raymond M.D. Vital Signs Date Vital Result Comment 06/12/2024 9:49am BP Systolic 120 mmHg BP Diastolic 80 mmHg Heart Rate 72 /min Height 66 inches 5'6 Weight 168.25 lb BMI (Body Mass Index) 27.2 kg/m2 Medical Devices Description No Information Available Encounters Type Date Location Provider Dx Diagnosis Office Visit 06/12/2024 9:30a Main Office Reyes Guerrier M.D. E21.0 Primary hyperparathyroidism Assessments Date Code Description Provider 06/12/2024 E21.0 Primary hyperparathyroidism Reyes Guerrier M.D. Plan of Treatment Future Appointment(s):* 11/12/2024 10:00 am - Reyes Guerrier M.D. at Main Office 06/12/2024 - Reyes Guerrier M.D.* E21.0 Primary hyperparathyroidism* New Labs:* Calcium, Ordered: 06/12/24 * Vitamin D, 25-Hydroxy, Ordered: 06/12/24 * Albumin, Ordered: 06/12/24 * Phosphorus, Ordered: 06/12/24 * PTH, Intact, Ordered: 06/12/24 * Creatinine, 24-Hour Urine, Ordered: 06/12/24 Functional Status Description No Information Available Mental Status Description No Information Available Referrals Description No Information Available
--- OUTSIDE RECORDS SUMMARY | 2024-06-23 09:27 | XMS_ITS | Patient Health Record ---
Author Organization [facility] Address [address] [place] [address] Care Team Providers Care Human Resources Professional Name Role Phone LEATHA, BAKARI Primary Care Provider Holland Sky [phone] ALLERGIES Allergen (clinical drug ingredient) Drug/Non Drug Allergy documented on EMR Reaction Allergy Type Onset Date Status Penicillin rash Drug Allergy Active REASON FOR REFERRAL No Information MEDICATIONS Medication SIG (Take, Route, Frequency, Duration) Notes Start Date End Date Status Levothyroxine Sodium 112 MCG 1 tablet Or ally 6 days a week Active Vitamin D2 1.25 mg 1 tablet Orally Once a day Active IMMUNIZATIONS Vaccine Route Administration Date Status Comme nts Influenza Unknown 01/22/2020 Administered SOCIAL HISTORY Sex Assigned At : Social History Observation Description Sex Assigned At Unknown Alcohol Screen Question Answer Notes Did you have a drink containing alcohol in the p ast year? No Points 0 Interpretation Negative PROBLEMS Problem Type ICD Code Onset Dates Problem Status W/U Status Risk SNOMED Code Notes Problem Encounter for screening for malignant neoplasm of colon (Z12.11) Active confirmed 604779608 Problem History of adenomatous polyp of colon (Z86.010) Active confirmed 915434720 Problem Calculus of gallbladder without cholecystitis without obstruction (K80.20) Active confirmed 842630754 Problem Encounter for screening for malignant neoplasm of rectum (Z12.12) Active confirmed Screening fo r malignant neoplasm of rectum (282254195) Problem Preprocedural examination (Z01.818) Active confirmed 81835427 Problem Diverticulosis of colon (K57.30) Active confirmed Diverticulosi s of colon (920445951) Problem Tubulovillous adenoma of colon (D12.6) Active confirmed 828040205 Problem Personal history of adenomatous and serrated colon polyps (Z86.0101) Active confirmed VITAL SIGNS Blood pressure diastolic 00 mm Hg 05/13/2024 Height 66 in 05/13/2024 Blood pressure systolic 00 mm Hg 05/13/2024 Weight 165 lbs 05/13/2024 BMI 26.63 kg/m2 05/13/2024 Encounters Encounter Location Date Provider Diagnosis [facility] [address] [place] [address] 05/13/2024 Holland Tiwari Encounter for screen ing for malignant neoplasm of colon Z12.11 ; Preprocedural examination Z01.818 and History of adenomatous polyp of colon Z86.010 ASSESSMENTS Encounter Date Diagnosis Assessment Notes Treatment Notes Treatment Clinical Notes 05/13/2024 Encounter for screening for malignant neoplasm of colon (ICD-10 - Z12.11) 05/13/2024 Preprocedural examination (ICD-10 - Z01.818) 05/13/2024 History of adenomatous polyp of colon (ICD-10 - Z86.010) PLAN OF TREATMENT Future Test Test Name Order Date COLONOSCOPY 01/04/2016 COLONOSCOPY 02/08/2021 COLONOSCOPY 05/13/2024 Next Appt Details Provider Name:Holland Tiwari , 08/29/2024 07:30:00 AM, [address] [place] [address] , [place], [place], [phone], Insurance Providers Payer Name Payer Address Payer Phone Subscriber Number Group Number Insured Name Patient Relationship to Insured Coverage Start Date Coverage End Date [facility] [address] [place] [address] [id number] JOSE MCKEON Self - patient is the insured MEDICAL (GENERAL) HISTORY Medical History History ICD Code Denies [place],DM,CVA,Lung disease,renal dise ase Diagnosed with gallstones 11/2015 at [facility] Hypothyroidism Screening colonoscopy in Apr with multiple polyps removed, including a > 1cm tubulovillous adenoma and > 1cm tubular adenoma Screening colonoscopy in Mar revealed several polyps that were removed, including another tubulovillous adenoma. Surgical History Surgery Date(Month/Year) Laparoscopy age 26 Lasik surgery OU 2003 Cholecystectomy-
--- OUTSIDE RECORDS SUMMARY | 2024-06-23 09:28 | XMS_ITS ---
Author Organization [facility] Address [address] [place] [address] Care Team Providers Care Horse Racing Analyst Name Role Phone BAKARI ZHANG Primary Care Provider Holland Sky [phone] ALLERGIES Allergen (clinical drug ingredient) Drug/Non Drug Allergy documented on EMR Reaction Allergy Type Onset Date Status Penicillin rash Drug Allergy Active REASON FOR VISIT Patient presents today for a COLON SCREENING MEDICATIONS Medication SIG (Take, Route, Frequency, Duration) Notes Start Date End Date Status Levothyroxine Sodium 112 MCG 1 tablet Or ally 6 days a week Active Vitamin D2 1.25 mg 1 tablet Orally Once a day Active SOCIAL HISTORY Sex Assigned At : Social History Observation Description Sex Assigned At Unknown Alcohol Screen Question Answer Notes Did you have a drink containing alcohol in the p ast year? No Points 0 Interpretation Negative PROBLEMS Problem Type ICD Code Onset Dates Problem Status W/U Status Risk SNOMED Code Notes Problem Personal history of adenomatous and serrated colon polyps (Z86.0101) Active confirmed VITAL SIGNS Blood pressure systolic 00 mm Hg 05/13/19 25 Blood pressure diastolic 00 mm Hg 025 Height 66 in 05/13/2024 Weight 165 lbs 05/13/2024 BMI 26.63 kg/m2 05/13/2024 Encounters Encounter Location Date Provider Diagnosis [facility] [address] [place] [phone] 05/13/2024 Holland Tiwari Encounter for screen ing [...] Future Test Test Name Order Date COLONOSCOPY 05/13/2024 Next Appt Details Follow Up: prn, Reason: Provider Name:Holland Tiwari , 08/29/2024 07:30:00 AM, [address] [place] [address], [phone], Progress Notes * Examination Category Sub-Category Detail Notes General Examination GENERAL APPEARANCE: pleasant , well nourished, well developed, in no acute distress HEAD: EYES: sclera non-icteric EARS: NOSE: THROAT: NECK/THYROID: no cervical lymphade nopathy, neck supple HEART: S1, S2 normal CHEST: LUNGS: clear to auscultatio n bilaterally ABDOMEN: normal bowel sounds, no guarding or rigidity, no guarding or rigidity, no masses palpable, soft, nontender, nondistended NEUROLOGIC: alert and oriented SKIN: nonjaundiced, no spi tha angiomata EXTREMITIES: no edema PERIPHERAL PULSES: BACK: BREASTS: MUSCULOSKELETAL: MALE GENITOURINARY: LYMPH NODES: RECTAL EXAM: FEMALE GENITOURINARY: ORAL CAVITY: mucosa moist
== END 2024-06-23 09:24 | disposition home or self-care (01) ==
LOC: HO.HMCSH 08:53
PROVIDERS: PCP Internal Medicine; Visit Provider Internal Medicine
DX: F41.9 Anxiety disorder, unspecified (principal); E21.3 Hyperparathyroidism, unspecified; E03.9 Hypothyroidism, unspecified

== ENCOUNTER 2024-07-17 06:07 | Outpatient (REF) | payer OTHER, SELFPAY ==
[2024-07-17 10:07] LABS: Hematocrit 44.5 % (37.0-47.0); Hemoglobin 14.6 g/dl (12.0-16.0); Mean Corpuscular HGB Conc 32.8 g/dl (31.0-35.0); Mean Corpuscular Volume 88.3 fL (80.0-98.0); Mean Platelet Volume 10.1 fL (9.4-12.3); Platelet Count 302 X10*3/uL (160-400); Red Blood Count 5.04 X10*6/uL (4.20-5.50); Red Cell Distribution Width 12.6 % (11.0-16.0); White Blood Count 7.9 X10*3/uL (4.8-10.8)
[2024-07-17 10:25] LABS: Appearance Urine Cloudy; Color Urine Yellow; Glucose Urine UA Negative (Negative); Leukocyte Esterase Urine Negative (Negative); Nitrite Urine Negative (Negative); PH 5.5 (5.0-9.0); Specific Gravity - Urine 1.015 (1.005-1.025); Urine Blood Negative (Negative); Urine Ketones Negative (Negative); Urine Protein Negative (Neg-Trace)
[2024-07-17 10:58] LABS: Alanine Aminotransferase 22 U/L (0-31); Alkaline Phosphatase 107 U/L (39-117); Anion Gap 9 (12-20); Aspartate Amino Transferase 22 U/L (5-31); Bilirubin Direct 0.1 mg/dL (0.0-0.5); Bilirubin Total 0.4 mg/dL (0.0-1.0); Blood Urea Nitrogen 7 mg/dL (9-16); Calcium 10.3 mg/dL (8.4-10.2); Carbon Dioxide 27 mmol/L (22-29); Chloride 111 mmol/L (96-108); Cholesterol 184 mg/dL (<200); Estimated Glomerular Filt Rate > 60; Glucose Random 89 mg/dL (60-115); HDL Cholesterol 46 mg/dL (>40); LDL Cholesterol Calculated 99 mg/dL (<100); Potassium 3.8 mmol/L (3.3-5.1); Sodium 143 mmol/L (135-145); Thyroid Stimulating Hormone 4.06 uIU/mL (0.32-4.0); Total Protein 6.5 g/dL (6.5-8.0); Triglycerides 196 mg/dL (<150)
== END 2024-07-17 06:08 | disposition home or self-care (01) ==
LOC: HO.HMGCLDS 06:07
PROVIDERS: PCP Internal Medicine; Visit Provider Internal Medicine
DX: F41.9 Anxiety disorder, unspecified (principal); E21.3 Hyperparathyroidism, unspecified; E03.9 Hypothyroidism, unspecified
CPT/HCPCS: 36415; 80048; 80061; 80076; 81003; 84443; 85027

== ENCOUNTER 2024-08-29 06:14 | Day surgery (SDC) | payer OTHER, SELFPAY ==
--- OUTSIDE RECORDS SUMMARY | 2024-07-31 08:04 | XMS_ITS | Continuity of Care Document ---
Author Organization [facility] [address] [place] [address] Phone [phone] Care Team Providers Care Solar Water Heater Installer Name Role Phone Holland Raymond M.D. Care Team Information Recei sandy [phone] Problems Active Problems Provider Date Hyperparathyroidism Reyes Guerrier M.D. Onse t: 07/03/2024 Social History Type Date Description Comments Sex Unknown Lives With Spouse ETOH Use Denies alcohol use Tobacco Use Start: Unknown Patient is a current smoke r, smokes every day 1/2 pack qd Allergies and adverse reactions Active Allergies Criticality Reaction Severity Comments Date Penicillin Unable to assess criticality Hives 06/12/2024 Medications Active Medications SIG Qnty Indications Ordering Provider Date Levothyroxine [id number] Tablets 1 tab by mouth every morning 90tabs Genaro Castro MD Vitamin D (Ergocalciferol)1.25mg (47371 Ut) Capsules Sea Raymond M.D. Vital Signs Date Vital Result Comment 06/12/2024 9:49am BP Systolic 120 mmHg BP Diastolic 80 mmHg Heart Rate 72 /min Height 66 inches 5'6 Weight 168.25 lb BMI (Body Mass Index) 27.2 kg/m2 Results Test Acquired Date Facility Test Result H/L [facility] Creatinine, 24-Hour Urine 06/27/2024 [facility] Creatinine, Urine 79.8 mg/dL Not Estab. Creatinine, Ur 24hr 1 mg/24hr Low 800-1800 Calcium 06/23/2024 [facility] Calcium 11.0 mg/dL High 8.7-10.2 1 Vitamin D, 25-Hydroxy 06/23/2024 [facility] Vitamin D, 25-Hydroxy 58.9 ng/mL 30.0-100.0 2 Albumin 06/23/2024 [facility] Albumin 4.8 g/dL 3.8-4.9 Phosphorus 06/23/2024 [facility] Phosphorus 2.4 mg/dL Low 3.0-4.3 PTH, Intact 06/23/2024 [facility] PTH, Intact 74 pg/mL High 15-65 1 Verified by repeat analysis 2 Vitamin D deficiency has been defined by the [place] of [employer] and an Endocrine Society practice guideline as a level of serum 25-OH vitamin D less than 20 ng/mL (1,2). The Endocrine Society went on to further define vitamin D insufficiency as a level between 21 and 29 ng/mL (2). 1. IOM ([place] of [employer]). 2010. Dietary reference intakes for calcium and D. [place]: The National Academies Press. 2. Ayesha MF, Ferny NC, Ilya DIAZ, et al. Evaluation, treatment, and prevention of vitamin D deficiency: an Endocrine Society clinical practice guideline. JCEM. 2011 Oct; 96(7):1911-30. Medical Devices Description No Information Available Encounters Type Date Location Provider Dx Diagnosis Office Visit 06/12/2024 9:30a Main Office Reyes Guerrier M.D. E21.0 Primary hyperparathyroidism Assessments Date Code Description Provider 06/12/2024 E21.0 Primary hyperparathyroidism Reyes Guerrier M.D. Plan of Treatment Future Appointment(s):* 11/12/2024 10:00 am - Reyes Guerrier M.D. at Main Office 06/12/2024 - Reyes Guerrier M.D.* E21.0 Primary hyperparathyroidism Functional Status Description No Information Available Mental Status Description No Information Available Referrals Description No Information Available
--- NOTE | 2024-08-27 13:04 | HO.ANESPROP2 ---
HPI - Anesthesia Eval Consult details Narrative: 59yo F for Colonoscopy PMFSH Active Problems Active Problems: All Active Problems Hypothyroidism (Acute) Anxiety (Acute) Hyperparathyroidism (Acute) Nicotine dependence, cigarettes, uncomplicated (Acute) Cancer of skin of left leg (Acute) Past Medical History Medical History Cancer of skin of left leg Nicotine dependence, cigarettes, uncomplicated Hypercalcemia Anxiety Vitamin D insufficiency Hypothyroidism Hyperparathyroidism Tubular adenoma of colon (~2016) Family History Family History Paternal Grandmother Colon cancer Maternal Grandmother Uterine cancer Family history of problems with anesthesia: No Surgical History Surgical History (Updated 08/07/24 @ 13:23 by Nelida Gibson) History of squamous cell carcinoma excision History of wisdom tooth extraction Hx of laparoscopy History of laser assisted in situ keratomileusis (~2003) History of laparoscopic cholecystectomy (~02/2016) History of colonoscopy (~04/01/21) History of Problems with Anesthesia: No Social History Social History Alcohol intake: current Alcohol intake frequency: does not drink Patient Tobacco Use Status: Current everyday Tobacco user Tobacco use type: Cigarette Cigarette Packs Per Day: 0.5 Cigarettes Per Day: 10.0 Years Smoked: 37 (onset 19, 1/2-3/4ppd x 38yrs, 20PYH) Meds Allergies Allergy/AdvReac Type Severity Reaction Status Date / Time Penicillins Allergy Intermediate Rash Verified 06/23/24 09:13 Home Medications ?Medication ?Instructions ?Recorded ?Confirmed ?Last Taken ?Type lorazepam 1 mg tablet 1 mg PO BID PRN 06/23/24 Unknown History Assessment and Plan Assessment Anesthesia Assessment: Chart Reviewed Final Anesthetic Review Family History of Problems with Anesthesia: No History of Problems with Anesthesia: No
[2024-08-27 13:56] VITALS: BMI 26.6
[2024-08-29 06:41] VITALS: BMI 27.3
[2024-08-29 06:55] VITALS: BP 110/74; PULSE 67; RESP 16; TEMP 36.3; O2SAT 95
[2024-08-29] MEDS: Lactated Ringers 1,000 ML 100 ML IVCONT (07:02)
--- NOTE | 2024-08-29 07:36 | P.CONAN_ITS ---
[facility] Active Problems Active Problems: All Active Problems Hypothyroidism (Acute) Anxiety (Acute) Hyperparathyroidism (Acute) Nicotine dependence, cigarettes, uncomplicated (Acute) Cancer of skin of left leg (Acute) Past Medical History Medical History Cancer of skin of left leg Nicotine dependence, cigarettes, uncomplicated Hypercalcemia Anxiety Vitamin D insufficiency Hypothyroidism Hyperparathyroidism Tubular adenoma of colon (~2016) Functional capacity: independent ambulation Patient : No Family History Family History Paternal Grandmother Colon cancer Maternal Grandmother Uterine cancer Family history of problems with anesthesia: No Surgical History Surgical History (Updated 08/07/24 @ 13:23 by Nelida Gibson) History of squamous cell carcinoma excision History of wisdom tooth extraction Hx of laparoscopy History of laser assisted in situ keratomileusis (~2003) History of laparoscopic cholecystectomy (~02/2016) History of colonoscopy (~04/01/21) History of Problems with Anesthesia: No Social History Social History Alcohol intake: current Alcohol intake frequency: does not drink Patient Tobacco Use Status: Current everyday Tobacco user Tobacco use type: Cigarette Cigarette Packs Per Day: 0.5 Cigarettes Per Day: 8 Years Smoked: 37 (onset 19, 1/2-3/4ppd x 38yrs, 20PYH) Use of substances other than those prescribed or required for medical reasons: No Are you DNR?: No Advance Directives: No Advance Directives Information Provided: Yes Patient : No Poor oral hygiene: No Meds Allergies Allergy/AdvReac Type Severity Reaction Status Date / Time Penicillins Allergy Intermediate Rash Verified 06/23/24 09:13 Active Medications: Current Medications Albuterol Sulfate (Albuterol Sulfate (0.083%) 2.5 Mg/3 Ml Vial.Neb) 2.5 mg INH GERMAN ONCE PRN PRN Reason: Shortness of Breath/Wheezing Fentanyl (Fentanyl Citrate/Pf 100 Mcg/2 Ml Vial) 50 mcg IVPUSH Q5M PRN PRN Reason: Pain, Moderate to Severe (Pain Scale 4-10) Stop: 08/29/24 13:17 Hydromorphone HCl (Hydromorphone Hcl 0.5 Mg/0.5 Ml Syringe) 0.25 mg IVPUSH Q5M PRN PRN Reason: Pain, Moderate to Severe (Pain Scale 4-10) Stop: 08/29/24 13:17 Lactated Ringer's (Lr) 1,000 mls @ 100 mls/hr IVCONT .Q10H ASHISH Last Admin: 08/29/24 07:02 Dose: 100 mls/hr Naloxone HCl (Naloxone Hcl 0.4 Mg/Ml Vial) 0.04 mg IVPUSH Q5M PRN PRN Reason: Excessive sedation or RR < 8 Ondansetron HCl (Ondansetron Hcl 4 Mg/2 Ml Vial) 4 mg IVPUSH ONCE PRN PRN Reason: Nausea and Vomiting Stop: 08/29/24 13:17 Ondansetron HCl (Ondansetron Odt 4 Mg Tab.Rapdis) 4 mg TRANSLINGU ONCE PRN PRN Reason: Nausea and Vomiting Stop: 08/29/24 13:17 Sodium Biphosphate/Sodium Phosphate (Sodium Phosphate,Sharkey-Dibasic 133 Ml Enema) 133 ml NE ONCE PRN PRN Reason: Poor Colonoscopy Prep Results Home Medications ?Medication ?Instructions ?Recorded ?Confirmed ?Last Taken ?Type lorazepam 1 mg tablet 1 mg PO BID PRN Anxiety 06/23/24 Unknown History ergocalciferol (vitamin D2) 1,250 1,250 mcg PO 2XW 08/27/24 08/27/24 Unknown History mcg (50,000 unit) capsule Exam Height,Weight and Vital Signs: Height 5 ft 5 in Weight 74.5 kg Last Vital Signs Temp 97.4 F 08/29/24 06:55 Pulse 67 08/29/24 06:55 Resp 16 08/29/24 06:55 BP 110/74 08/29/24 06:55 Pulse Ox 95 08/29/24 06:55 O2 Del Method Room Air 08/29/24 06:55 Airway Mallampati Class: II TM Dist: >3cm Neck ROM: Full Loose/Missing/Broken Teeth: No Heart: rrr Lungs: cts Assessment and Plan Final Anesthetic Review Family History of Problems with Anesthesia: No History of Problems with Anesthesia: No Final Preanesthetic Review: No Changes in Pt Med Stat, Meds/Allgs Chart Reviewed, Consent Obtained/Reviewed and Anes Risks/Benef Reviewed Patient Risk: Low Procedure Risk: Low Anesthetic Plan Anesthetic Plan: MAC: Disposition: Standard PACU
[2024-08-29 08:47] VITALS: BP 99/55; PULSE 56; RESP 15; TEMP 36.1; O2SAT 95
--- NOTE | 2024-08-29 08:47 | PM.OP ---
Brief Operative Note Date of Service: 08/22/24 Pre-op diagnosis: Screening Post-op diagnosis: other (Polyp) Procedure: Colonoscopy to the cecum with bx/removal of polyp Surgeon: Holland Tiwari MD Anesthesia: MAC Was an Ambulance Attendant used for this Procedure?: No Estimated blood loss (mL): 2.0 Pathology: other (A. Distal rectal polyp) Condition: stable Disposition: PACU
[2024-08-29 09:05] VITALS: BP 118/73; PULSE 61; RESP 18; TEMP 36.1; O2SAT 99
--- NOTE | 2024-08-29 09:42 | OP_ITS ---
DATE OF SERVICE: 08/29/2024 SURGEON: Holland Tiwari MD INDICATIONS: The patient presents for evaluation of personal history of colon polyps and colorectal cancer screening. Full consent obtained from her for this, including risks of bleeding and perforation. PREOPERATIVE DIAGNOSIS: POSTOPERATIVE DIAGNOSIS: PROCEDURE PERFORMED: Colonoscopy to the cecum with biopsy and removal of polyp. ESTIMATED BLOOD LOSS: COMPLICATIONS: ANESTHESIA: Monitored anesthesia care. ASSISTANTS: SPECIMENS: PREOPERATIVE DIAGNOSES: Colorectal cancer screening and personal history of colon. POSTOPERATIVE DIAGNOSES: Colorectal cancer screening and personal history of colon, distal rectal polyp, diverticulosis, and internal hemorrhoids. DESCRIPTION OF PROCEDURE: The patient was placed in the left lateral decubitus position. The digital rectal exam revealed no abnormalities. The Olympus video pediatric colonoscope was entered into the rectum and advanced easily to the cecum. Once in the cecum, I did identify normal-appearing cecal pouch with appendiceal orifice and a normal-appearing ileocecal valve. The entire cecum and ileocecal valve appeared normal. There was transillumination of light deep in the right lower quadrant. The scope was slowly withdrawn assessing all mucosal surfaces carefully. Preparation was excellent. The only polyp I visualized was in the distal rectum, seen in the retroflexed position. This was approximately 5 mm in diameter and removed with cold biopsy forceps completely. I did not visualize any other polyps, colitis, nor angiodysplasia. There was a mild amount of sigmoid diverticulosis. Also in the distal rectum, there were some internal hemorrhoids. The scope was straightened and withdrawn from the patient. She tolerated the procedure well and was returned to the recovery area in stable condition. IMPRESSION: 1. Small distal rectal polyp, status post biopsy removal. 2. Diverticulosis. 3. Internal hemorrhoids. PLAN: The results of biopsy will be checked. Given her previous history, I would recommend a followup colonoscopy in 3 years for further screening and surveillance. She will otherwise see me on a p.r.n. basis. MD CECI Linares/LANCE / [phone]
== END 2024-08-29 09:19 | disposition home or self-care (01) ==
PROVIDERS: PCP Internal Medicine; Visit Provider Internal Medicine
PROC: 0DJD8ZZ Inspection of Lower Intestinal Tract, Via Natural or Artificial Opening Endoscopic (ICD-10-PCS; CPT 45378; principal; 2024-08-29 07:30)
DX: Z12.11 Encounter for screening for malignant neoplasm of colon (principal); Z86.0101 Personal history of adenomatous and serrated colon polyps; K62.1 Rectal polyp; K57.30 Diverticulosis of large intestine without perforation or abscess without bleeding; K64.8 Other hemorrhoids; E03.9 Hypothyroidism, unspecified; Z79.899 Other long term (current) drug therapy; Z90.49 Acquired absence of other specified parts of digestive tract; Z98.890 Other specified postprocedural states; F17.210 Nicotine dependence, cigarettes, uncomplicated
CPT/HCPCS: 45380; 88305; J2003; J2704

== ENCOUNTER 2025-02-04 10:47 | Outpatient (REF) | payer OTHER, SELFPAY ==
[2025-02-04 14:10] LABS: Anion Gap 8 (12-20); Blood Urea Nitrogen 7 mg/dL (9-16); Calcium 10.7 mg/dL (8.4-10.2); Carbon Dioxide 28 mmol/L (22-29); Chloride 110 mmol/L (96-108); Estimated Glomerular Filt Rate > 60; Magnesium 2.2 mg/dL (1.6-2.6); Potassium 4.2 mmol/L (3.3-5.1); Sodium 142 mmol/L (135-145)
[2025-02-04 17:04] LABS: Folate 14.0 ng/mL (> or = 4.0); Vitamin B12 416 pg/mL (200-900)
== END 2025-02-04 10:48 | disposition home or self-care (01) ==
LOC: HO.HMGCLDS 10:47
PROVIDERS: PCP Internal Medicine; Visit Provider Physician Assistant Medical
DX: Z00.00 Encounter for general adult medical examination without abnormal findings (principal); E83.52 Hypercalcemia; M85.80 Other specified disorders of bone density and structure, unspecified site; R92.30 Dense breasts, unspecified; K57.90 Diverticulosis of intestine, part unspecified, without perforation or abscess without bleeding; I10 Essential (primary) hypertension; F17.210 Nicotine dependence, cigarettes, uncomplicated; Z86.0100 Personal history of colon polyps, unspecified; Z13.1 Encounter for screening for diabetes mellitus; Z28.89 Immunization not carried out for other reason
CPT/HCPCS: 36415; 80048; 82306; 82607; 82746; 83036; 83735; 84443; 96127

== ENCOUNTER 2025-02-04 10:47 | Outpatient (AMB) | payer OTHER, SELFPAY ==
[2025-02-04 10:48] VITALS: BP 148/86; PULSE 73; TEMP 36.2; O2SAT 99; BMI 27.9
--- NOTE | 2025-02-04 10:48 | A.OFFPC_ITS ---
Vital Signs 02/04/25 10:48 02/04/25 11:49 Height 5 ft 5 in Weight 167 lb 7 oz BMI 27.9 BP 148/86 H 140/84 H Blood Pressure Location Lt brachial Position Sitting Pulse 73 Pulse Source Pulse Oximeter Temp 97.1 F Temp Source Temporal Artery Scan Pulse Oximetry (%) 99 Oxygen Delivery Method Room Air Intake Visit Reasons: Physcal Accompanied by: Self / Same As Patient Allergies Penicillins Allergy (Intermediate, Verified 02/04/25 11:00) Rash Medication List - Last Reconciled 02/04/25 by Anastasia Jj PA-C levothyroxine 112 mcg PO DAILY lorazepam 1 mg PO BID PRN Tobacco use date assessed: 02/04/25 Dental Screening Dental Screen Date: 02/04/25 Did you have a dental visit in the last 12 months?: Yes Was dental information given to patient?: Patient has dentist HPI Physcal HPI Details The patient is a 60-year-old female presenting for an annual physical examination. The patient has a history of hypercalcemia, identified during a referral to an shoe repair supervisor by Dr. Raymond. She was previously on high-dose vitamin D2, which was discontinued by the shoe repair supervisor due to elevated calcium levels. Currently, she takes [id number] vitamin D supplements. The patient has been diagnosed with osteopenia, characterized by reduced bone density, increasing the risk of fractures. She was advised to engage in weight-bearing exercises and take calcium and vitamin D supplements. The possibility of starting Fosamax was discussed, and she was advised to consult her shoe repair supervisor regarding this treatment option. The patient underwent a colonoscopy on August 29, 2024, which revealed colonic polyps, diverticulosis, and hemorrhoids. She was informed about the nature of diverticulosis and potential symptoms to watch for, such as left lower quadrant pain and bloody stools. The patient reports fibrocystic breast changes, resulting in dense breast tissue and necessitating frequent mammograms and ultrasounds. She is currently on an annual mammogram schedule after previously undergoing biannual screenings. The patient has a history of smoking, necessitating regular lung cancer screenings. She is categorized as Lung-RADS 2, indicating benign findings and continuation of annual screenings. The patient has been experiencing elevated blood pressure readings, with recent measurements of 140/84 mmHg and 148/86 mmHg. She denies any symptoms such as headaches, dizziness, or vision changes associated with hypertension. Social History - Smoking: The patient has a history of smoking, which necessitates regular lung cancer screenings. - Dietary Habits: The patient consumes a high amount of sugar, including four to five sodas a day. [facility] [place] Medical History (Updated 02/04/25 @ 13:19 by Anastasia Jj PA-C) History of mammogram (~07/25/24) Hypertension Colonic polyp Diverticulosis Osteopenia (~07/05/23) Annual physical exam Cancer of skin of left leg Nicotine dependence, cigarettes, uncomplicated Hypercalcemia Anxiety Vitamin D insufficiency Hypothyroidism Hyperparathyroidism Tubular adenoma of colon (~2016) Surgical History History of squamous cell carcinoma excision History of wisdom tooth extraction Hx of laparoscopy History of laser assisted in situ keratomileusis (~2003) History of laparoscopic cholecystectomy (~02/2016) History of colonoscopy (08/29/24) Family History Paternal Grandmother Colon cancer Maternal Grandmother Uterine cancer Social History Housing: House Alcohol intake: current Alcohol intake frequency: does not drink Patient Tobacco Use Status: Current everyday Tobacco user Tobacco use type: Cigarette Cigarette Packs Per Day: 0.5 Cigarettes Per Day: 8 Years Smoked: 38 (onset 19, 1/2-3/4ppd x 37yrs, 20PYH) service: No Current occupational status: employed Cognitive needs: No Hearing needs: No Vision needs: Yes (cheaters) Questionnaire PHQ-9 Over the last 2 weeks, how often have you been bothered by any of the following problems? 1. Little interest or pleasure in doing things: not at all 2. Feeling down, depressed, or hopeless: not at all 3. Trouble falling or staying asleep, or sleeping too much: not at all 4. Feeling tired or having little energy: not at all 5. Poor appetite or overeating: not at all 6. Feeling bad about yourself - or that you are a failure or have let yourself or your family down: not at all 7. Trouble concentrating on things, such as reading the newspaper or watching television: not at all 8. Moving or speaking so slowly that other people could have noticed. Or the opposite - being so fidgety or restless that you have been moving around a lot more than usual: not at all 9. Thoughts that you would be better off or of hurting yourself in some way: not at all Total score: 0 Depression Screening Interpretation: Negative Depression Screening Done: Yes 86928 - PHQ-9 Billing: Yes Source: Developed by Drs. Holland Hendrickson, Hailee Bustos, Dionte Amaya and colleagues, with an educational bibi from [employer]. Thrive Questionnaire Date Thrive assessed: 02/04/25 I am a: Patient What is your living situation today?: I have a steady place to live Within the past 12 months, did the food you bought not last and you didn't have the money to get more?: Never true Within the past 12 months, did you worry whether your food would run out before you got money to buy more?: Never true Do you have trouble paying for medicines?: No Do you have trouble getting transportation to medical appointments?: No Do you have trouble paying your heating and electricity bill?: No Do you have trouble taking care of your child, family member or friend?: No Do you have trouble with day-to-day activities such as bathing, preparing meals, shopping, managing finances, etc.?: No Are you currently unemployed and looking for a job?: No Are you interested in more education?: No THRIVE Score: 0 AUDIT C Alcohol Use Questionnaire (AUDIT-C) 1. How often do you have a drink containing alcohol?: Never Total Score: 0 Score Reviewed/Action Taken: No NURIS-7 AMB Questionnaire NURIS-7 Date NURIS - 7 assessed: 02/04/25 Feeling nervous, anxious, or on edge: 0 = Not at all Not being able to stop or control worryin = Not at all Worrying too much about different things: 0 = Not at all Trouble relaxin = Not at all Being so restless that it is hard to sit still: 0 = Not at all Becoming easily annoyed or irritable: 0 = Not at all Feeling afraid as if something awful might happen: 0 = Not at all Total NURIS-7 score (0-4 normal; 5-9 mild; 10-14 moderate; 15-21 severe): 0 Source: Developed by Drs. Holland Hendrickson, Hailee Bustos, Dionte Amaya and colleagues, with an educational bibi from [employer]. NURIS-7 Assessment Billing NURIS-7 Assessment Tool: NURIS-7 Assessment 27301 Review of Systems Const Details: - Cardiovascular: Denies chest pain, orthopnea, or syncope. - Respiratory: Denies dyspnea, cough, hemoptysis, or wheezing. - Gastrointestinal: Denies abdominal pain, nausea, vomiting, diarrhea, or changes in bowel habits. - Neurological: Denies headaches, dizziness, or balance issues. - Genitourinary: Denies dysuria, hematuria, or urinary frequency. - Musculoskeletal: Denies joint pain, swelling, or stiffness. - Dermatological: Denies rashes or skin changes. All systems reviewed & are unremarkable except as noted in HPI and below Physical exam (Primary Care) Vital Signs: Last Vital Signs Temp 97.1 F 02/04/25 10:48 Pulse 73 02/04/25 10:48 BP 140/84 H 02/04/25 11:49 Pulse Ox 99 02/04/25 10:48 Oxygen Delivery Method Room Air 02/04/25 10:48 Care Plan Goal for BP management: <140/90 patient will patient will return inr 1 month for blood pressure check BMI result Body Mass Index 27.9 BMI Assessment/Plan discussion: High BMI High, discussed plan: lifestyle, weight reduction, dietary, physical activity, alcohol moderation and other Tobacco/Smoking Status: Tobacco use Status Tobacco use date assessed 02/04/25 02/04/25 10:50 Patient Tobacco Use Status Current everyday Tobacco 02/04/25 10:50 Tobacco use type Cigarette 02/04/25 10:50 PHQ-9: PHQ-9 Score PHQ-9: Total score 0 02/04/25 11:01 Depression Screening Interpretation: Negative Thrive Assessment: Date of Thrive Assessment Date Thrive assessed 02/04/25 02/04/25 10:50 Const Other: Appearance: Alert. Oriented X3. No acute distress. Head: Normal external exam. Normocephalic. Atraumatic. Eyes: Pupils are equal, round, and reactive to light. Extraocular movements intact. Conjunctiva and sclera normal. Eyelids normal. Ears: External auditory canal normal. Tympanic membranes normal. Throat: Pharynx normal. Uvula midline. Moist mucous membranes. Neck: Normal inspection. Neck supple. Full range of motion. No adenopathy. Thyroid Normal. No meningeal signs. No neck mass noted. Cardiovascular: Normal heart rate and rhythm. Heart sound normal. No murmurs noted. Pulses normal throughout. Respiratory: No respiratory distress. Painless inspiration. Breath sounds normal. No wheezes/rales/rhonchi noted. Chest nontender. No accessory muscle usage noted or decreased air movement noted. Abdomen: Soft and nontender. Bowel sounds normal in all 4 quadrants. No distention noted. No organomegaly noted. No visible injury noted. Back: No costovertebral angle tenderness. Full range of motion noted. Skin: Skin warm and dry. Normal skin color. Normal skin turgor. No rashes/lesions/lacerations noted. Extremities: No lower extremity edema. Extremities exhibit normal range of motion. Extremities nontender. Neuro: Oriented X 3. No motor deficit. No sensory deficit. Reflexes normal. Office Procedures Flu Questionnaire Does the patient have a severe egg allergy?: No Does the patient have a fever or illness today?: No Has the patient ever had Guillain-[place] Syndrome?: No Has the patient ever had any past reaction to a flu shot?: No Immunizations Fluarix [id number] (PF) 45 mcg (15 mcg x 3)/0.5 mL IM syringe Performing Provider: Anastasia Jj PA-C [facility] [place] [facility] Documented (not given) by: Wilda Tracy CMA on 02/04/25 10:58 Reason Not Given: Received Previously Results Reviewed Results Reviewed: - Labs: CBC normal, sodium and potassium normal, calcium elevated, triglycerides elevated, thyroid function high. - Imaging: Lung-RADS category 2 indicating benign findings, continuation of annual screening recommended. - Procedures: Colonoscopy on 08/29/24 revealed colonic polyps, diverticulosis, and hemorrhoids. Coding Level of Care Code Est Pt Level 4 (76293) Est Pt Prev Care 40-64y(87371) Diagnoses Annual physical exam Z00.00 Hypercalcemia E83.52 Osteopenia M85.80 Diverticulosis K57.90 Colonic polyp K63.5 Hypertension I10 Nicotine dependence, cigarettes, uncomplicated F17.210 Additional Codes NURIS-7 Assessment Billing - NURIS-7 Assessment Tool: NURIS-7 Assessment 50223 ([id number]) PHQ-9 - 56138 - PHQ-9 Billing: Yes ([id number]) Time Spent (min) 50 Assessment & Plan Assessment & Plan (1) Annual physical exam: Code(s): Z00.00 - Encounter for general adult medical examination without abnormal findings Category: Medical (2) Hypercalcemia: Code(s): E83.52 - Hypercalcemia Category: Medical Plan: The patient has a history of hypercalcemia, identified during a referral to an shoe repair supervisor. She was previously on high-dose vitamin D2, which was discontinued due to elevated calcium levels. Current management includes monitor ing calcium levels and consulting with the shoe repair supervisor for further evaluation. (3) Osteopenia: Onset Date: ~07/05/23 Code(s): M85.80 - Other specified disorders of bone density and structure, unspecified site Category: Medical Plan: The patient has been diagnosed with osteopenia, characterized by reduced bone density. She was advised to engage in weight-bearing exercises and take calcium and vitamin D supplements. The possibility of starting Fosamax was discussed, and she was advised to consult her shoe repair supervisor regarding this treatment option. (4) Diverticulosis: Code(s): K57.90 - Diverticulosis of intestine, part unspecified, without perforation or abscess without bleeding Category: Medical Plan: The patient has diverticulosis, identified during a recent colonoscopy. She was informed about potential symptoms such as left lower quadrant pain and bloody stools. Management includes dietary modifications and monitoring for symptoms. (5) Colonic polyp: Code(s): K63.5 - Polyp of colon Category: Medical Plan: Colonic polyps were identified during a colonoscopy on August 29, 2024. Regular surveillance colonoscopies are recommended to monitor for changes. (6) Hypertension: Code(s): I10 - Essential (primary) hypertension Category: Medical Plan: The patient has been experiencing elevated blood pressure readings, with recent measurements of 140/84 mmHg and 148/86 mmHg. She was advised to monitor her blood pressure at home and return for a follow-up in one month. Lifestyle modifications, including dietary changes and regular exercise, were recommended. (7) Nicotine dependence, cigarettes, uncomplicated: Comment: (Current Smoker, onset 19, 1/2-3/4ppd x 40 yrs, 25pyh) Code(s): F17.210 - Nicotine dependence, cigarettes, uncomplicated Category: Medical Plan: Patient has annual lung cancer screening. Condition is chronic and stable continue to monitor. Plan Plan Patient was informed and verbally consented to the use of an ambient scribe for clinic note documentation during this visit. 1. Hypercalcemia The patient has a history of hypercalcemia, identified during a referral to an shoe repair supervisor. She was previously on high-dose vitamin D2, which was discontinued due to elevated calcium levels. Current management includes monitoring calcium levels and consulting with the shoe repair supervisor for further evaluation. 2. Osteopenia The patient has been diagnosed with osteopenia, characterized by reduced bone density. She was advised to engage in weight-bearing exercises and take calcium and vitamin D supplements. The possibility of starting Fosamax was discussed, and she was advised to consult her shoe repair supervisor regarding this treatment option. 3. Diverticulosis The patient has diverticulosis, identified during a recent colonoscopy. She was informed about potential symptoms such as left lower quadrant pain and bloody stools. Management includes dietary modifications and monitoring for symptoms. 4. Colonic Polyps Colonic polyps were identified during a colonoscopy on August 29, 2024. Regular surveillance colonoscopies are recommended to monitor for changes. 5. Hypertension The patient has been experiencing elevated blood pressure readings, with recent measurements of 140/84 mmHg and 148/86 mmHg. She was advised to monitor her blood pressure at home and return for a follow-up in one month. Lifestyle modifications, including dietary changes and regular exercise, were recommended. During the visit, we discussed the patient's hypercalcemia and the importance of monitoring calcium levels with her shoe repair supervisor. We also reviewed her osteopenia diagnosis and the potential benefits of Fosamax, advising her to consult her shoe repair supervisor. The patient was informed about her diverticulosis and the symptoms to monitor, such as abdominal pain and bloody stools. We discussed her elevated blood pressure readings and the need for lifestyle modifications and home monitoring. Orders: Orders Vitamin D 25-OH Total Today Z00.00 - Encounter for general adult medical examination without abnormal findings TSH reflex Free T4 Today Z00.00 - Encounter for general adult medical examination without abnormal findings Hemoglobin A1c Today Z00.00 - Encounter for general adult medical examination without abnormal findings Influenza [id number] Immunization Today Z23 - Encounter for immunization Vitamin B12 and Folate Today Z00.00 - Encounter for general adult medical examination without abnormal findings Magnesium Today Z00.00 - Encounter for general adult medical examination without abnormal findings Basic Metabolic Panel Today Z00.00 - Encounter for general adult medical examination without abnormal findings Medications: Refilled levothyroxine 112 mcg PO DAILY 90 tabs 1RF Patient Instructions: - Monitor blood pressure at home regularly and record the readings. - Engage in weight-bearing exercises to improve bone density. - Take calcium and vitamin D supplements as advised. - Follow up with the shoe repair supervisor regarding Fosamax for osteopenia. - Be aware of symptoms of diverticulosis, such as abdominal pain and bloody stools, and seek medical attention if they occur. - Maintain a healthy diet and reduce sugar intake to manage blood pressure and overall health.
[2025-02-04 11:49] VITALS: BP 140/84
== END 2025-02-04 11:29 | disposition home or self-care (01) ==
LOC: HO.HMCSH 10:47
PROVIDERS: PCP Internal Medicine; Visit Provider Physician Assistant Medical
DX: Z00.00 Encounter for general adult medical examination without abnormal findings (principal); E83.52 Hypercalcemia; M85.80 Other specified disorders of bone density and structure, unspecified site; K57.90 Diverticulosis of intestine, part unspecified, without perforation or abscess without bleeding; K63.5 Polyp of colon; I10 Essential (primary) hypertension; F17.210 Nicotine dependence, cigarettes, uncomplicated; Z23 Encounter for immunization

== ENCOUNTER 2025-03-04 13:20 | Outpatient (AMB) | payer OTHER, SELFPAY ==
--- NOTE | 2025-03-04 11:28 | MHC.PC.OV ---
Vital Signs 03/04/25 13:31 03/04/25 14:50 Height 5 ft 5 in Weight 166 lb 0.6 oz BMI 27.6 BP 147/67 H 144/95 H Pulse 71 Pulse Source Pulse Oximeter Temp 97.0 F Pulse Oximetry (%) 98 Intake Visit Reasons: Follow up/ BP check Intake Note: Started with congestion a month ago and now still has cough. [employer]ician Required: No Accompanied by: Self / Same As Patient Allergies Penicillins Allergy (Intermediate, Verified 03/04/25 14:52) Rash Medication List - Last Reconciled 03/04/25 by Anastasia Jj PA-C codeine-guaifenesin 10-100 mg/5 mL 5 mL PO Q6H PRN doxycycline monohydrate 100 mg PO BID 10 days levothyroxine 112 mcg PO DAILY lisinopril 5 mg PO DAILY Tobacco use date assessed: 02/04/25 Dental Screening Dental Screen Date: 02/04/25 Did you have a dental visit in the last 12 months?: Yes Did you have a dental problem in the last 6 months where you did not have access to dental care?: No Was dental information given to patient?: Patient has dentist HPI Follow up/ BP check HPI Details The patient is a 60-year-old female presenting for a blood pressure check and evaluation of a persistent cough. She reports a cough for the past three weeks, which is productive of mucus. She notes the cough is less severe than when it started but has not resolved. The patient reports that her blood pressure readings at home have been higher than her normal, which is usually in the 120s. Out of 11 home readings, four were in the 140s. She also reports occasional fatigue and a feeling of pressure when lying down, but denies shortness of breath or chest pain with exertion. The patient is a smoker. She has a known allergy to penicillin, which causes a red face. A lung cancer screening on April 28, 2024, showed a few benign-appearing pulmonary micronodules, with a recommendation for continued annual screening. Social History - Tobacco Use: Reports being a smoker. - Diet: Denies drinking coffee. [facility] Medical History (Updated 03/04/25 @ 15:00 by Anastasia Jj PA-C) Acute bronchitis Chest pressure Cough History of mammogram (~07/25/24) Hypertension Colonic polyp Diverticulosis Osteopenia (~07/05/23) Annual physical exam Cancer of skin of left leg Nicotine dependence, cigarettes, uncomplicated Hypercalcemia Anxiety Vitamin D insufficiency Hypothyroidism Hyperparathyroidism Tubular adenoma of colon (~2016) Surgical History History of squamous cell carcinoma excision History of wisdom tooth extraction Hx of laparoscopy History of laser assisted in situ keratomileusis (~2003) History of laparoscopic cholecystectomy (~02/2016) History of colonoscopy (08/29/24) Family History Paternal Grandmother Colon cancer Maternal Grandmother Uterine cancer Social History Housing: House Alcohol intake: current Alcohol intake frequency: does not drink Patient Tobacco Use Status: Current everyday Tobacco user Tobacco use type: Cigarette Cigarette Packs Per Day: 0.5 Cigarettes Per Day: 8 Years Smoked: 38 (onset 19, 1/2-3/4ppd x 38yrs, 20PYH) service: No Current occupational status: employed Cognitive needs: No Hearing needs: No Vision needs: Yes (cheaters) Questionnaire PHQ-9 Over the last 2 weeks, how often have you been bothered by any of the following problems? 1. Little interest or pleasure in doing things: not at all 2. Feeling down, depressed, or hopeless: not at all 3. Trouble falling or staying asleep, or sleeping too much: not at all 4. Feeling tired or having little energy: not at all 5. Poor appetite or overeating: not at all 6. Feeling bad about yourself - or that you are a failure or have let yourself or your family down: not at all 7. Trouble concentrating on things, such as reading the newspaper or watching television: not at all 8. Moving or speaking so slowly that other people could have noticed. Or the opposite - being so fidgety or restless that you have been moving around a lot more than usual: not at all 9. Thoughts that you would be better off or of hurting yourself in some way: not at all Total score: 0 Depression Screening Interpretation: Negative Depression Screening Done: Yes 90198 - PHQ-9 Billing: Yes Source: Developed by Drs. Holland Hendrickson, Hailee Bustos, Dionte Amaya and colleagues, with an educational bibi from [employer] Thrive Questionnaire Date Thrive assessed: 02/04/25 I am a: Patient What is your living situation today?: I have a steady place to live Within the past 12 months, did the food you bought not last and you didn't have the money to get more?: Never true Within the past 12 months, did you worry whether your food would run out before you got money to buy more?: Never true Do you have trouble paying for medicines?: No Do you have trouble getting transportation to medical appointments?: No Do you have trouble paying your heating and electricity bill?: No Do you have trouble taking care of your child, family member or friend?: No Do you have trouble with day-to-day activities such as bathing, preparing meals, shopping, managing finances, etc.?: No Are you currently unemployed and looking for a job?: No Are you interested in more education?: No THRIVE Score: 0 AUDIT C Alcohol Use Questionnaire (AUDIT-C) 1. How often do you have a drink containing alcohol?: Never Total Score: 0 Score Reviewed/Action Taken: No NURIS-7 AMB Questionnaire NURIS-7 Date NURIS - 7 assessed: 02/04/25 Feeling nervous, anxious, or on edge: 0 = Not at all Not being able to stop or control worryin = Not at all Worrying too much about different things: 0 = Not at all Trouble relaxin = Not at all Being so restless that it is hard to sit still: 0 = Not at all Becoming easily annoyed or irritable: 0 = Not at all Feeling afraid as if something awful might happen: 0 = Not at all Total NURIS-7 score (0-4 normal; 5-9 mild; 10-14 moderate; 15-21 severe): 0 Source: Developed by Drs. Holland Hendrickson, Hailee Bustos, Dionte Amaay and colleagues, with an educational bibi from [employer]. NURIS-7 Assessment Billing NURIS-7 Assessment Tool: NURIS-7 Assessment 55215 Review of Systems Const Details: - Respiratory: Reports a productive cough for three weeks. - Denies shortness of breath. - Cardiovascular: Reports feeling pressure when lying down. - Denies chest pain or shortness of breath when going up stairs. - Constitutional: Reports feeling fatigued. All systems reviewed & are unremarkable except as noted in HPI and below Physical exam (Primary Care) Vital Signs: Last Vital Signs Temp 97.0 F 03/04/25 13:31 Pulse 71 03/04/25 13:31 BP 147/67 H 03/04/25 13:31 Pulse Ox 98 03/04/25 13:31 Care Plan Goal for BP management: <140/90 she will be started on 5 mg of lisinopril daily and return in 1 month for blood pressure check with diary BMI result Body Mass Index 27.6 BMI Assessment/Plan discussion: High BMI High, discussed plan: lifestyle, weight reduction, dietary, physical activity, alcohol moderation and other Tobacco/Smoking Status: Tobacco use Status Tobacco use date assessed 02/04/25 03/04/25 11:30 Patient Tobacco Use Status Current everyday Tobacco 03/04/25 11:30 Tobacco use type Cigarette 03/04/25 11:30 PHQ-9: PHQ-9 Score PHQ-9: Total score 0 03/04/25 13:38 Depression Screening Interpretation: Negative Thrive Assessment: Date of Thrive Assessment Date Thrive assessed 02/04/25 03/04/25 11:30 Const Other: Appearance: Alert. Oriented X3. No acute distress. Head: Normal external exam. Normocephalic. Atraumatic. Eyes: Pupils are equal, round, and reactive to light. Extraocular movements intact. Conjunctiva and sclera normal. Eyelids normal. Throat: Pharynx normal. Uvula midline. Moist mucous membranes. Neck: Normal inspection. Neck supple. Full range of motion. Cardiovascular: Normal heart rate and rhythm. Heart sound normal. No murmurs noted. Pulses normal throughout. Respiratory: No respiratory distress. Painless inspiration. Breath sounds normal. No wheezes/rales/rhonchi noted. No accessory muscle usage noted or decreased air movement noted. Back: Full range of motion noted. Skin: Skin warm and dry. Normal skin color. Normal skin turgor. No rashes/lesions/lacerations noted. Extremities: Extremities exhibit normal range of motion. Neuro: Oriented X 3. No motor deficit. No sensory deficit. Reflexes normal. Office Procedures Flu Questionnaire Does the patient have a severe egg allergy?: No Does the patient have severe life threatening allergies?: No Does the patient have a fever or illness today?: No Has the patient ever had Guillain-Mansfield Syndrome?: No Has the patient ever had any past reaction to a flu shot?: No Immunizations Fluarix [id number] (PF) 45 mcg (15 mcg x 3)/0.5 mL IM syringe Performing Provider: Anastasia Jj PA-C Performing Location: [facility] [place] [facility] Documented (not given) by: Samara Hsieh on 03/04/25 13:39 Reason Not Given: Received Previously Results Reviewed Results Reviewed: - Lung Cancer Screening (04/28/2024): Revealed a few punctate pulmonary micronodules bilaterally, measuring less than 6 mm, considered benign (Category 2), with a recommendation for annual screening. Coding Level of Care Code Est Pt Level 4 (77294) Complex EM visit Add On G2211 Diagnoses Acute bronchitis J20.9 Hypertension I10 Nicotine dependence, cigarettes, uncomplicated F17.210 Additional Codes NURIS-7 Assessment Billing - NURIS-7 Assessment Tool: NURIS-7 Assessment 41878 ([id number]) PHQ-9 - 79570 - PHQ-9 Billing: Yes ([id number]) Assessment & Plan Assessment & Plan (1) Acute bronchitis: Code(s): J20.9 - Acute bronchitis, unspecified Category: Medical Plan: Given the patient's three-week history of a productive cough and her status as a smoker, there is a concern for bacterial bronchitis. A chest x-ray will be ordered to rule out pneumonia. Due to a penicillin allergy, Doxycycline will be prescribed twice a day for 10 days. Robitussin with codeine will also be prescribed for cough suppression. (2) Hypertension: Code(s): I10 - Essential (primary) hypertension Category: Medical Plan: The patient's blood pressure was elevated in the office at 147/67 mmHg and 144/94 mmHg, with some elevated readings at home. She has agreed to start medication, and Lisinopril 5 mg daily will be prescribed, starting with the lowest dose as per her request. To investigate the etiology of her hypertension, especially in the context of reported fatigue and pressure when lying down, an ultrasound of the heart and a stress test will be ordered. The patient will continue to monitor her blood pressure at home and follow up in one month to assess the medication's effectiveness. (3) Nicotine dependence, cigarettes, uncomplicated: Comment: (Current Smoker, onset 19, 1/2-3/4ppd x 40 yrs, 25pyh) Code(s): F17.210 - Nicotine dependence, cigarettes, uncomplicated Category: Medical Plan: The patient is a smoker, which is a significant risk factor for her respiratory and cardiovascular conditions. Results of her previous lung cancer screening were reviewed, and she is advised to continue with annual screening. Plan Plan Patient was informed and verbally consented to the use of an ambient scribe for clinic note documentation during this visit. 1. Acute Bronchitis Given the patient's three-week history of a productive cough and her status as a smoker, there is a concern for bacterial bronchitis. A chest x-ray will be ordered to rule out pneumonia. Due to a penicillin allergy, Doxycycline will be prescribed twice a day for 10 days. Robitussin with codeine will also be prescribed for cough suppression. 2. Hypertension The patient's blood pressure was elevated in the office at 147/67 mmHg and 144/94 mmHg, with some elevated readings at home. She has agreed to start medication, and Lisinopril 5 mg daily will be prescribed, starting with the lowest dose as per her request. To investigate the etiology of her hypertension, especially in the context of reported fatigue and pressure when lying down, an ultrasound of the heart and a stress test will be ordered. The patient will continue to monitor her blood pressure at home and follow up in one month to assess the medication's effectiveness. 3. Tobacco Use The patient is a smoker, which is a significant risk factor for her respiratory and cardiovascular conditions. Results of her previous lung cancer screening were reviewed, and she is advised to continue with annual screening. I discussed with the patient her elevated blood pressure readings, both in the office and at home, and the need to initiate treatment. We agreed to start Lisinopril at the lowest dose of 5 mg daily, per her preference. I explained that due to her symptoms of fatigue and chest pressure when lying down, I was ordering an ultrasound of her heart and a stress test for further evaluation. I also addressed her persistent productive cough, explaining my suspicion of bronchitis, especially given her smoking history. I ordered a chest x-ray to rule out pneumonia and prescribed doxycycline, being mindful of her penicillin allergy, along with Robitussin with codeine for symptom relief. I educated her on the potential for photosensitivity with doxycycline. I advised her to seek emergency care if her chest pressure worsens. A follow-up appointment is scheduled in one month to re-evaluate her blood pressure. Orders: Orders Influenza [id number] Immunization Today Z23 - Encounter for immunization XR chest 2V Today R05.9 - Cough, unspecified ECG 12 lead EKG Today I10 - Essential (primary) hypertension, R07.89 - Other chest pain CA echo transthoracic complete Today I10 - Essential (primary) hypertension, R07.89 - Other chest pain CA stress test Today I10 - Essential (primary) hypertension, R07.89 - Other chest pain NM cardiolite stress test Today I51.89 - Other ill-defined heart diseases Medications: New lisinopril 5 mg PO DAILY 90 tabs 3RF doxycycline monohydrate 100 mg PO BID 20 tabs 0RF 10 days codeine-guaifenesin 10-100 mg/5 mL 5 mL PO Q6H PRN 120 mL 0RF cough Patient Instructions: - Take Lisinopril 5 mg once a day for your blood pressure. - Take one capsule of Doxycycline twice a day for 10 days to treat the infection. - Be careful in the sun while taking Doxycycline, as it can cause a sunburn. - You can take Robitussin with codeine for your cough. - Please go for a chest X-ray to check your lungs. - The hospital will call you to schedule an ultrasound of your heart and a stress test. - Keep checking your blood pressure at home. - Come back for a follow-up visit in one month. - If your chest pressure gets worse, go to the emergency room.
[2025-03-04 13:31] VITALS: BP 147/67; PULSE 71; TEMP 36.1; O2SAT 98; BMI 27.6
[2025-03-04 14:50] VITALS: BP 144/95
== END 2025-03-04 14:04 | disposition home or self-care (01) ==
LOC: HO.HMCSH 13:20
PROVIDERS: PCP Physician Assistant Medical; Visit Provider Physician Assistant Medical
DX: J20.9 Acute bronchitis, unspecified (principal); I10 Essential (primary) hypertension; F17.210 Nicotine dependence, cigarettes, uncomplicated; Z23 Encounter for immunization

== ENCOUNTER 2025-03-04 13:20 | Outpatient (REF) | payer OTHER, SELFPAY ==
--- NOTE | ~2025-03-04 | XR_ITS ---
EXAMINATION: XR CHEST CLINICAL INFORMATION: R05.9 - Cough, unspecified COMPARISON: July 05, 2013 TECHNIQUE: PA and lateral views FINDINGS: No consolidation, pleural effusion or pneumothorax. No hyperinflation. Cardiomediastinal silhouette size is normal. Osseous structures are intact. XR/XR chest 2V IMPRESSION: No acute airspace disease. Electronically signed by: Marco Li MD 03/04/2025 03:25 PM EST
== END 2025-03-04 13:21 | disposition home or self-care (01) ==
LOC: HO.HMGCX 13:20
PROVIDERS: PCP Physician Assistant Medical; Visit Provider Physician Assistant Medical
DX: R05.3 Chronic cough (principal); J02.9 Acute pharyngitis, unspecified; J20.9 Acute bronchitis, unspecified; I11.9 Hypertensive heart disease without heart failure; F17.210 Nicotine dependence, cigarettes, uncomplicated; Z23 Encounter for immunization; Z28.89 Immunization not carried out for other reason; E07.89 Other specified disorders of thyroid
CPT/HCPCS: 71046; 90471; 96127

== ENCOUNTER → 2025-03-04 14:30 | Outpatient (BNV) | payer OTHER, SELFPAY | PROVIDERS: PCP Physician Assistant Medical; Visit Provider Radiology Diagnostic Radiology | DX: R05.9 Cough, unspecified (principal) | CPT/HCPCS: 71046 ==

== ENCOUNTER 2025-04-06 14:07 | Outpatient (AMB) | payer OTHER, SELFPAY ==
--- NOTE | 2025-04-06 14:09 | A.OFFPC_ITS ---
Vital Signs 04/06/25 14:21 Height 5 ft 5 in Weight 166 lb 0.8 oz BMI 27.6 BP 123/76 Blood Pressure Location Rt brachial Pulse 68 Pulse Source Pulse Oximeter Temp 97.2 F Pulse Oximetry (%) 99 Intake Visit Reasons: 1 Month follow up Intake Note: no issues Allergies Penicillins Allergy (Intermediate, Verified 04/06/25 14:32) Rash Medication List - Last Reconciled 04/06/25 by Anastasia Jj PA-C levothyroxine 112 mcg PO DAILY lisinopril 5 mg PO DAILY Tobacco use date assessed: 02/04/25 Dental Screening Dental Screen Date: 02/04/25 Did you have a dental visit in the last 12 months?: Yes Did you have a dental problem in the last 6 months where you did not have access to dental care?: Yes Was dental information given to patient?: Patient has dentist HPI HPI Comments History of Present Illness Details History of Present Illness The patient is a 60 year old female presenting for a follow-up visit for blood pressure management and residual cough after bronchitis. She was recently diagnosed with bronchitis and treated with antibiotics and a cough medicine containing codeine, which she found helpful. She reports feeling like there is still something in her chest and can produce a cough that sounds productive, though she does not cough frequently otherwise. She denies shortness of breath associated with the cough. Regarding hypertension, the patient is on lisinopril 5 mg and is monitoring her blood pressure at home. She reports the cough from her bronchitis was present before starting the lisinopril. For health maintenance, a CT scan was ordered for lung cancer screening. She has a history of a small, 6 mm benign lung nodule which was seen on a CT scan last year. A prior chest x-ray was also normal. She has a cardiology appointment scheduled, which includes a stress test and echocardiogram. FORMERLY [facility], [facility]1983 Medical History Acute bronchitis Chest pressure Cough History of mammogram (~07/25/24) Hypertension Colonic polyp Diverticulosis Osteopenia (~07/05/23) Cancer of skin of left leg Nicotine dependence, cigarettes, uncomplicated Hypercalcemia Anxiety Vitamin D insufficiency Hypothyroidism Hyperparathyroidism Tubular adenoma of colon (~2017) Surgical History History of squamous cell carcinoma excision History of wisdom tooth extraction Hx of laparoscopy History of laser assisted in situ keratomileusis (~2003) History of laparoscopic cholecystectomy (~02/2016) History of colonoscopy (08/29/24) Family History Paternal Grandmother Colon cancer Maternal Grandmother Uterine cancer Social History Housing: House Alcohol intake: current Alcohol intake frequency: does not drink Patient Tobacco Use Status: Current everyday Tobacco user Tobacco use type: Cigarette Cigarette Packs Per Day: 0.5 Cigarettes Per Day: 8 Years Smoked: 38 (onset 19, 1/2-3/4ppd x 37yrs, 20PYH) service: No Current occupational status: employed Cognitive needs: No Hearing needs: No Vision needs: Yes (cheaters) Questionnaire PHQ-9 Over the last 2 weeks, how often have you been bothered by any of the following problems? 1. Little interest or pleasure in doing things: not at all 2. Feeling down, depressed, or hopeless: not at all 3. Trouble falling or staying asleep, or sleeping too much: not at all 4. Feeling tired or having little energy: not at all 5. Poor appetite or overeating: not at all 6. Feeling bad about yourself - or that you are a failure or have let yourself or your family down: not at all 7. Trouble concentrating on things, such as reading the newspaper or watching television: not at all 8. Moving or speaking so slowly that other people could have noticed. Or the opposite - being so fidgety or restless that you have been moving around a lot more than usual: not at all 9. Thoughts that you would be better off or of hurting yourself in some way: not at all Total score: 0 Depression Screening Interpretation: Negative Depression Screening Done: Yes 71715 - PHQ-9 Billing: Yes Source: Developed by Drs. Holland Hendrickson, Hailee Bustos, Dionte Amaya and colleagues, with an educational bibi from [employer]. Thrive Questionnaire Date Thrive assessed: 02/04/25 I am a: Patient What is your living situation today?: I have a steady place to live Within the past 12 months, did the food you bought not last and you didn't have the money to get more?: Never true Within the past 12 months, did you worry whether your food would run out before you got money to buy more?: Never true Do you have trouble paying for medicines?: No Do you have trouble getting transportation to medical appointments?: No Do you have trouble paying your heating and electricity bill?: No Do you have trouble taking care of your child, family member or friend?: No Do you have trouble with day-to-day activities such as bathing, preparing meals, shopping, managing finances, etc.?: No Are you currently unemployed and looking for a job?: No Are you interested in more education?: No THRIVE Score: 0 AUDIT C Alcohol Use Questionnaire (AUDIT-C) 1. How often do you have a drink containing alcohol?: Never Total Score: 0 Score Reviewed/Action Taken: No NURIS-7 AMB Questionnaire NURIS-7 Date NURIS - 7 assessed: 02/04/25 Feeling nervous, anxious, or on edge: 0 = Not at all Not being able to stop or control worryin = Not at all Worrying too much about different things: 0 = Not at all Trouble relaxin = Not at all Being so restless that it is hard to sit still: 0 = Not at all Becoming easily annoyed or irritable: 0 = Not at all Feeling afraid as if something awful might happen: 0 = Not at all Total NURIS-7 score (0-4 normal; 5-9 mild; 10-14 moderate; 15-21 severe): 0 Source: Developed by Drs. Holland Hendrickson, Hailee Bustos, Dionte Amaya and colleagues, with an educational bibi from [employer]. NURIS-7 Assessment Billing NURIS-7 Assessment Tool: NURIS-7 Assessment 98901 Review of Systems Narrative Review of Systems - Constitutional: Reports feeling well. - Respiratory: Reports a residual cough after bronchitis that sounds productive on forced expiration and a sensation of something in her chest. Denies shortness of breath. - Cardiovascular: Denies any symptoms discussed. Const All systems reviewed & are unremarkable except as noted in HPI and below Physical exam (Primary Care) Vital Signs: Last Vital Signs Temp 97.2 F 04/06/25 14:21 Pulse 68 04/06/25 14:21 BP 123/76 04/06/25 14:21 Pulse Ox 99 04/06/25 14:21 Care Plan Goal for BP management: <140/90 at Goal BMI result Body Mass Index 27.6 BMI Assessment/Plan discussion: High BMI High, discussed plan: lifestyle, weight reduction, dietary, physical activity, alcohol moderation and other Tobacco/Smoking Status: Tobacco use Status Tobacco use date assessed 02/04/25 04/06/25 14:12 Patient Tobacco Use Status Current everyday Tobacco 04/06/25 14:12 Tobacco use type Cigarette 04/06/25 14:12 PHQ-9: PHQ-9 Score PHQ-9: Total score 0 04/06/25 14:28 Depression Screening Interpretation: Negative Thrive Assessment: Date of Thrive Assessment Date Thrive assessed 02/04/25 04/06/25 14:12 Narrative Physical Exam Appearance: Alert. Oriented X3. No acute distress. Head: Normal external exam. Normocephalic. Atraumatic. Eyes: Pupils are equal, round, and reactive to light. Extraocular movements intact. Conjunctiva and sclera normal. Eyelids normal. Throat: Pharynx normal. Uvula midline. Moist mucous membranes. Neck: Normal inspection. Neck supple. Full range of motion. Cardiovascular: Normal heart rate and rhythm. Heart sound normal. No murmurs noted. Pulses normal throughout. Respiratory: No respiratory distress. Painless inspiration. Breath sounds normal, but patient reports feeling like there is something in the lungs. No wheezes/rales/rhonchi noted. Chest nontender. No accessory muscle usage noted or decreased air movement noted. Back: Full range of motion noted. Skin: Skin warm and dry. Normal skin color. Normal skin turgor. No rashes/lesions/lacerations noted. Extremities: No lower extremity edema. Extremities exhibit normal range of motion. Neuro: Oriented X 3. No motor deficit. No sensory deficit. Reflexes normal. Office Procedures Flu Questionnaire Does the patient have a severe egg allergy?: No Does the patient have severe life threatening allergies?: No Does the patient have a fever or illness today?: No Has the patient ever had Guillain-Greeley Syndrome?: No Has the patient ever had any past reaction to a flu shot?: No Immunizations Fluarix [id number] (PF) 45 mcg (15 mcg x 3)/0.5 mL IM syringe Performing Provider: Anastasia Jj PA-C Performing Location: [facility] [place] [facility] Documented (not given) by: Samara Hsieh on 04/06/25 14:23 Reason Not Given: Received Previously Results Reviewed Results Reviewed: - Imaging: A chest x-ray performed since the last visit was normal. - Imaging: A CT scan from last year showed a small, 6 mm benign lung nodule. Coding Level of Care Code Est Pt Level 4 (57375) Add On Problem Visit Only Diagnoses Acute bronchitis J20.9 Hypertension I10 Nicotine dependence, cigarettes, uncomplicated F17.210 Additional Codes NURIS-7 Assessment Billing - NURIS-7 Assessment Tool: NURIS-7 Assessment 79341 ([id number]) PHQ-9 - 64066 - PHQ-9 Billing: Yes ([id number]) Assessment & Plan Assessment & Plan (1) Acute bronchitis: Code(s): J20.9 - Acute bronchitis, unspecified Category: Medical Plan: The patient reports a persistent sensation of something in her chest and a productive-sounding cough following a recent diagnosis of bronchitis. Although her lungs sound clear on auscultation, the forced cough is notable. To address these residual symptoms, a 5-day course of a Z-Alphonse (azithromycin) will be prescribed. The patient was reassured that her recent normal chest x-ray and previous CT scan showing a stable benign nodule make lung cancer unlikely. (2) Hypertension: Code(s): I10 - Essential (primary) hypertension Category: Medical Plan: The patient is on the lowest dose of lisinopril 5 mg and is doing well with it, as her home blood pressure log shows good control. It was noted that lisinopril can cause a cough, but the patient's cough preceded this medication. She will continue the current dose and can follow up in six months, with instructions to call if her home readings are abnormal or if the cough becomes bothersome. (3) Nicotine dependence, cigarettes, uncomplicated: Comment: (Current Smoker, onset 19, 1/2-3/4ppd x 40 yrs, 25pyh) Code(s): F17.210 - Nicotine dependence, cigarettes, uncomplicated Category: Medical Plan: The patient has a follow-up CT scan scheduled for lung cancer screening. This is in the context of a stable, 6 mm benign nodule seen on a scan from the previous year. She was also reminded that she had a normal chest x-ray recently. Plan Plan Patient was informed and verbally consented to the use of an ambient scribe for clinic note documentation during this visit. 1. Bronchitis The patient reports a persistent sensation of something in her chest and a productive-sounding cough following a recent diagnosis of bronchitis. Although her lungs sound clear on auscultation, the forced cough is notable. To address these residual symptoms, a 5-day course of a Z-Alphonse (azithromycin) will be prescribed. The patient was reassured that her recent normal chest x-ray and previous CT scan showing a stable benign nodule make lung cancer unlikely. 2. Essential (Primary) Hypertension The patient is on the lowest dose of lisinopril 5 mg and is doing well with it, as her home blood pressure log shows good control. It was noted that lisinopril can cause a cough, but the patient's cough preceded this medication. She will continue the current dose and can follow up in six months, with instructions to call if her home readings are abnormal or if the cough becomes bothersome. 3. Screening For Malignant Neoplasm Of Lung The patient has a follow-up CT scan scheduled for lung cancer screening. This is in the context of a stable, 6 mm benign nodule seen on a scan from the previous year. She was also reminded that she had a normal chest x-ray recently. 4. Cardiology Consultation The patient has an upcoming appointment with cardiology. This will include a stress test and an echocardiogram scheduled for the of next month. Discussion Notes I reviewed the patient's home blood pressure log, which showed excellent control on lisinopril 5 mg, and we agreed to continue this medication. We discussed her residual cough from bronchitis; although her lungs are clear on exam, a forced cough sounds productive, so I prescribed a Z-Alphonse. I provided reassurance regarding her 's concern about lung cancer by reviewing her normal chest x-ray and the stable, benign nature of the 6 mm nodule on last year's CT scan. We agreed on a follow-up in six months, with instructions to monitor her blood pressure at home and to contact me if it worsens or if the cough becomes problematic. We confirmed her upcoming appointments for a lung cancer screening CT and a cardiology evaluation, which includes a stress test and an echo. Orders: Orders Influenza [id number] Immunization Today Z23 - Encounter for immunization Medications: New azithromycin For 250 mg dose pack: take 500 mg today (day 1), then 250 mg for 4 days (days 2-5) PO 6 tabs 0RF Patient Instructions: Patient Instructions - Continue taking lisinopril 5 mg for your blood pressure as prescribed. - Take the prescribed Z-Alphonse (azithromycin) for 5 days to help with the lingering cough from your bronchitis. - Continue to check your blood pressure at home periodically. - Please let us know if your blood pressure readings become high or if your cough gets worse. - You have upcoming appointments for a CT scan of your lungs and an evaluation with a engineering specialist technician (wares sorter), which includes a stress test and an ultrasound of your heart. - Your next follow-up appointment in this office is scheduled for September.
[2025-04-06 14:21] VITALS: BP 123/76; PULSE 68; TEMP 36.2; O2SAT 99; BMI 27.6
--- OUTSIDE RECORDS SUMMARY | 2025-04-06 20:33 | XMS_ITS ---
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 She was seen on January 05, 2025, at which time she was treated with Liquid Nitrogen.The patient presents for follow up evaluation and further evaluation and management.Interval History: Patient reports lesion is slowly coming back. Allergies, Adverse Reactions, Alerts Substance RxNorm Reaction(s) Severity Status Start Da te Penicillins Rash mild active 04/26/19 21 Medications Medication Generic Name RxNorm Strength Strength Unit Route Dose Dose Form Frequency Date Started Date Ended Status Indication Sig betamethaso ne dipropionat e betameth asone dipropio demario 043055 0.05 % Topica l cream AM and PM 04/26/19 21 suspend ed Rash Appl y AM and PM rash inst ep of righ t foot for 2 week s fluorouraci l fluorour acil 502810 5 % Topica l cream Am and pm 04/26/19 21 suspend ed Actinic damage Appl y AM and PM area s of sun roz ge for 4 week s face a void eyes . Expe ct redn ess, jv ting and blis alisha ng. mupirocin mupiroci n 156957 2 % Topica l ointm ent 05/20/19 22 suspend ed Appl y AM and PM biop sy site righ t foot afte r wash ing with soap and wate r unti l heal ed tretinoin tretinoi n 575772 0.025 % Topica l cream Qd 01/01/20 22 suspend ed Appl y ever y few nigh ts then ever y othe r nigh t then work ing up to nigh tly face Adults Multivitami n multivit ramirez-min -iron-FA -vit K 18 mg iron-400 mcg-25 mcg Oral Take 1 table t daily active ergocalcife rol (vitamin D2) 2974638 1,250 mcg (50,000 unit) Oral Take 1 capsu le daily active levothyroxi [place] 953762 112 mcg Oral Take 1 table t daily active lisinopril 769313 5 mg Oral 1 table t qd active Vitamin D3 cholecal ciferol (vitamin D3) Oral suspend ed Problems Problem Code Type Status Date of Diagnosis Date of Resolution History of clinical finding in subject (situation) 597628935(S NOMED) Problem active Melanocytic nevus of trunk (disorder) 499611617(S NOMED) Diagnosis active 08/01/2017 Hemangioma of skin and subcutaneous tissue D18.01(ICD- 10) Diagnosis active 04/26/2020 Other seborrheic keratosis L82.1(ICD-1 0) Diagnosis active 04/26/2020 Other melanin hyperpigmentation L81.4(ICD-1 0) Diagnosis active 04/26/2020 Melanocytic nevi of trunk D22.5(ICD-1 0) Diagnosis active 04/26/2020 Other skin changes due to chronic exposure to nonionizing radiation L57.8(ICD-1 0) Diagnosis active 04/26/2020 Dermatitis, unspecified L30.9(ICD-1 0) Diagnosis active 04/26/2020 Other skin changes due to chronic exposure to nonionizing radiation L57.8(ICD-1 0) Diagnosis active 06/09/2020 Other melanin hyperpigmentation L81.4(ICD-1 0) Diagnosis active 06/09/2020 Other seborrheic keratosis L82.1(ICD-1 0) Diagnosis active 06/09/2020 Dermatitis, unspecified L30.9(ICD-1 0) Diagnosis active 06/09/2020 Hemangioma of skin and subcutaneous tissue (disorder) 821376843(S NOMED) Diagnosis active 05/02/2021 Seborrheic keratosis (disorder) 294016923(S NOMED) Diagnosis active 05/02/2021 Disorder of pigmentation (disorder) 069590009(S NOMED) Diagnosis active 05/02/2021 Melanocytic nevus of trunk (disorder) 855457340(S NOMED) Diagnosis active 05/02/2021 Patient encounter status (finding) 819852832(S NOMED) Diagnosis active 05/02/2021 Neoplasm of uncertain behavior of skin (disorder) 72804091(SN OMED) Diagnosis active 05/02/2021 Skin changes due to chronic exposure to non-ionizing radiation (disorder) 992487521(S NOMED) Diagnosis active 05/02/2021 Hemangioma of skin and subcutaneous tissue (disorder) 913026094(S NOMED) Diagnosis active 06/21/2022 Seborrheic keratosis (disorder) 129495797(S NOMED) Diagnosis active 06/21/2022 Disorder of pigmentation (disorder) 719695149(S NOMED) Diagnosis active 06/21/2022 Melanocytic nevus of trunk (disorder) 759490962(S NOMED) Diagnosis active 06/21/2022 Patient encounter status (finding) 905597408(S NOMED) Diagnosis active 06/21/2022 Atopic dermatitis (disorder) 40117522(SN OMED) Diagnosis active 06/21/2022 Actinic keratosis (disorder) 038856628(S NOMED) Problem active Hemangioma of skin and subcutaneous tissue (disorder) 323409732(S NOMED) Diagnosis active 09/05/2023 Seborrheic keratosis (disorder) 101926787(S NOMED) Diagnosis active 09/05/2023 Actinic keratosis (disorder) (S NOMED) Diagnosis active 09/05/2023 Disorder of pigmentation (disorder) 841572977(S NOMED) Diagnosis active 09/05/2023 Melanocytic nevus of trunk (disorder) 626810185(S NOMED) Diagnosis active 09/05/2023 Patient encounter status (finding) 910217259(S NOMED) Diagnosis active 09/05/2023 History of malignant neoplasm of skin (situation) 398233818(S NOMED) Diagnosis active 09/05/2023 Hemangioma of skin and subcutaneous tissue (disorder) 259488512(S NOMED) Diagnosis active 04/07/2024 Seborrheic keratosis (disorder) 773556993(S NOMED) Diagnosis active 04/07/2024 Disorder of pigmentation (disorder) 028458470(S NOMED) Diagnosis active 04/07/2024 Melanocytic nevus of trunk (disorder) 045057319(S NOMED) Diagnosis active 04/07/2024 Patient encounter status (finding) 517087482(S NOMED) Diagnosis active 04/07/2024 History of malignant neoplasm of skin (situation) 300836574(S NOMED) Diagnosis active 04/07/2024 Squamous cell carcinoma (disorder) 367566008(S NOMED) Problem active History of malignant neoplasm of skin (situation) 801420733(S NOMED) Diagnosis active 01/05/2025 Hemangioma of skin and subcutaneous tissue (disorder) 507177968(S NOMED) Diagnosis active 01/05/2025 Seborrheic keratosis (disorder) 449547758(S NOMED) Diagnosis active 01/05/2025 Disorder of pigmentation (disorder) 471390913(S NOMED) Diagnosis active 01/05/2025 Melanocytic nevus of trunk (disorder) 379109359(S NOMED) Diagnosis active 01/05/2025 Patient encounter status (finding) 484689619(S NOMED) Diagnosis active 01/05/2025 Prurigo nodularis (disorder) 36511755(SN OMED) Diagnosis active 01/05/2025 Hypothyroidism (disorder) 45182898(SN OMED) Problem active Vitamin D deficiency (disorder) 60918901(SN OMED) Problem active Eczema (disorder) 54826944(SN OMED) Problem active Seborrheic keratosis (disorder) 063273889(S NOMED) Problem active Prurigo nodularis (disorder) 25790142(SN OMED) Diagnosis active 04/06/2025 Increased blood pressure (finding) 75024584(SN OMED) Problem active Results No data Encounters Service provided at [address], [address], [place], [place] [id number]. Office phone number is [phone]. Office fax number is [phone]. Encounter Diagnosis Location Date / Time Type Disc harge Status Prurigo Nodule (L28.1) [place] 04/06/2025 13:45:00 UTC NI Reason For Referral No data Procedures Procedure Date Injection of triamcinolone (procedure) 1 06/07/2024 12:00 am UTC Documentation of current medications (pr ocedure) 04/06/2025 12:00 am UTC Documentation of current medications (pr ocedure) 01/05/2025 12:00 am UTC Cryotherapy of skin lesion with liquid n itrogen (procedure) 01/05/2025 12:00 am UTC Cryotherapy of skin lesion with liquid n itrogen (procedure) 04/07/2024 12:00 am UTC Destruction of premalignant skin lesion (procedure) 09/05/2023 12:00 am UTC Cryotherapy of skin lesion with liquid n itrogen (procedure) 06/21/2022 12:00 am UTC Shave biopsy (procedure) 05/02/2021 12:0 0 am UTC Cryotherapy of skin lesion with liquid n itrogen (procedure) 06/09/2020 12:00 am UTC Documentation of past medical history (p rocedure) Documentation of past medical history (p rocedure) Documentation of past medical history (p rocedure) Documentation of past medical history (p rocedure) Documentation of past medical history (p rocedure) Cholecystectomy (procedure) Cholecystectomy (procedure) Cholecystectomy (procedure) Review Of Systems Provider reviewed on Apr 06, 2025.A focused review of systems was performed including Integumentary.No Problems With Healing And No Problems With Scarring (hypertrophic Or Keloid). Assessment 1.Prurigo NoduleCounselingIntralesional Kenalog: right medial superior chest; middle sternum; Concentration of Kenalog Solution Injected (mg/ml) - 5.0; Kenalog Preparation - Kenalog; Medical Necessity Justification (varies by insurance carrier and by region) - irritated, painful, and inflamed. Plan of Care Future visit for 05/04/2025 - Follow up in 1 month for: Focused Visit - 15 minutes. Other Instructions: Recheck ILK sites. Other Instructions: Recheck ILK sites. Code Detail Instructions 329131 mupirocin 2 % topical ointment A pply AM and PM biopsy site right foot after washing with soap and water until healed 098387 tretinoin 0.025 % topical cream Apply every few nights then every other night then working up to nightly face 505998 betamethasone diprop ionate 0.05 % topical cream Apply AM and PM rash instep of right foot for 2 weeks 152799 betamethasone billie te 0.1 % topical cream - 438193 fluorouracil 5 % topical cream A pply AM and PM areas of sun damage for 4 weeks face a void eyes. Expect redness, crusting and blistering. Instructions * I counseled the patient regarding the following:Skin care: Recommend trimming nails short, anti-itch lotions such as Sarna, topical steroids and antihistamines.Expectations: Prurigo Nodularis is a self-inflicted lesion that results from picking or rubbing the same spot of skin over and over again. If the itch-scratch cycle is broken, the lesions will resolve.Contact office if: Prurigo Nodularis worsens, or if itching is accompanied by constitutional symptoms. Social History Code Activity Start Date End Date [id number] (SNOMED) Light tobacco smoker Sex Female Sexual orientation Unspecified Gender identity Unspecified Vital Signs No data Insurances Coverage Status Coverage Type Relationship to Subscriber Member Identifier Subscriber Identifier Group Identifier Payer Identifier Active 1 Self [id number] Inactive 2 Self [id number]
== END 2025-04-06 14:40 | disposition home or self-care (01) ==
LOC: HO.HMCSH 14:07
PROVIDERS: PCP Physician Assistant Medical; Visit Provider Physician Assistant Medical
DX: J20.9 Acute bronchitis, unspecified (principal); I10 Essential (primary) hypertension; F17.210 Nicotine dependence, cigarettes, uncomplicated; Z23 Encounter for immunization

== ENCOUNTER → 2025-04-06 14:07 | Outpatient (BNVA) | payer OTHER, SELFPAY | PROVIDERS: PCP Physician Assistant Medical; Visit Provider Physician Assistant Medical | DX: Z28.89 Immunization not carried out for other reason (principal); I10 Essential (primary) hypertension; J20.9 Acute bronchitis, unspecified; F17.210 Nicotine dependence, cigarettes, uncomplicated | CPT/HCPCS: 90471; 96127 ==